=== PATIENT | male | born 1965 | race Caucasian/White ===

== ENCOUNTER → 2016-05-27 | Outpatient (CLI) | payer OTHER ==
[~2016-05-27] MED LIST: 'XANAX1 MG PO; ALBUTEROL0.09 MG/A2 IH; ANTIVERT25 MG PO; ASPIR-LOW81 MG PO; CELEXA10 MG PO; CIPROFLOXACIN500 MG PO; CLARITIN10 MG PO; DAYPRO600 M1 PO; EFFEXOR XR37.5 M1 PO; EFFEXOR XR75 M1 PO; FLOMAX0.4 MG PO; FLUOXETINE40 MG PO; FLUTICASON0.05 MG/AC NAS; HYCODAN,HYDROME10 ML PO; HYDR12.5C PO; HYDRODIURIL25 MG PO; HYTRIN1 M1 PO; LEVAQUIN750 MG PO; LISINOPRIL10 MG PO; LOTRIMIN1% TP; LUNESTA3 MG PO; LYRICA200 M1 PO; LYRICA50 M1 PO; MEDROL DOSEPAK4 MG PO; METHOCARBAMOL750 M1 PO; MONTELUKAST SOD10 MG PO; MOTRIN800 MG PO; NASONEX0.05 MG/AC NAS; NORCO 10-325 T1 EACH PO; PERCOCET 325 MG1 TA2 PO; PERCOCET 325 MG1 TA7 PO; POTASSIUM CITR10 MEQ PO; PREDNISONE20 M1 PO; PREDNISONE50 MG PO; PRILOSEC OTC20 MG PO; PRINIVIL10 MG PO; PROVENTIL0.09 MG/A1 INH; PROZAC20 MG PO; PROZAC40 M1 PO; PYRIDIUM200 M1 PO; RESTORIL15 MG PO; SEROQUEL25 MG PO; TEMAZEPAM30 MG PO; TRICOR145 MG PO; VIBRAMYCIN100 MG PO; VICODIN 500 MG-1 TAB PO; VICODIN ES 7501 TAB PO; VIIBRYD40; VIIBRYD40 PO; VITAMIN B11000 MCG/M IM; XANAX0.25 MG PO; XANAX0.5 MG PO; ZANTAC150 MG PO; ZITHROMAX Z PA250 MG PO; ZOFRAN ODT4 MG SL; ZOFRAN4 MG PO
[2016-06-01 12:07] LABS: BUSHITE 1.62 ratio (0.00-3.00); CALCIUM OXALATE 2.32 ratio (0.00-6.00); CALCIUM, URINE 187.2 mg/24 hr (100.0-300.0); CALCIUM, URINE 6.4 mg/dL (Not Estab.); CITRIC ACID (CITRATE) 924 mg/24 hr (320-1240); CREATININE, URINE 54.2 mg/dL (Not Estab.); MAGNESIUM, URINE 2.2 mg/dL (Not Estab.); MONOSODIUM URATE 4.83 ratio (0.00-4.00); OSMOLALITY, URINE 429 (300-900); SODIUM, URINE 112 mmol/L (Not Estab.); SODIUM, URINE 328 (40-220); STRUVITE 0.05 ratio (0.00-1.00); URIC ACID 0.22 ratio (0.00-1.20); URINE VOLUME 2925 mL/24 hr (800-1800); URINE VOLUME (PRESERVATIVE) 2925 mL/24 hr (800-1800); pH 24 HR URINE 6.9 (.)
== END | disposition home or self-care (01) ==
LOC: LAB 10:07
PROVIDERS: Urology
DX: N20.0 Calculus of kidney (principal)

== ENCOUNTER → 2016-07-24 | Outpatient (CLI) | payer OTHER | LOC: CARD 06:46 | DX: I63.9 Cerebral infarction, unspecified (principal); I34.0 Nonrheumatic mitral (valve) insufficiency; I07.1 Rheumatic tricuspid insufficiency ==

== ENCOUNTER → 2016-07-31 | Outpatient (CLI) | payer OTHER | LOC: US 11:30 | DX: M79.605 Pain in left leg (principal); M79.89 Other specified soft tissue disorders ==

== ENCOUNTER 2016-08-12 11:06 | Emergency (ER) | payer OTHER ==
[~2016-08-12] VITALS: Ht 180.3 cm; Wt 161.0 kg
[2016-08-12 11:42] LABS: BASO % 0.3 % (0.0-1.0); EOS # 0.3 10*3/uL (0.0-0.4); EOS % 3.4 % (1.0-4.0); HEMATOCRIT 43.1 % (42.0-52.0); LYMPH # 1.8 10*3/uL (1.3-4.4); LYMPH % 25.1 % (27.0-41.0); MEAN CELL VOLUME 88.9 fl (80.0-94.0); MEAN CORPUSCULAR HGB 28.9 pg (27.0-31.0); MEAN CORPUSCULAR HGB CONC 32.5 g/dl (33.0-37.0); MEAN PLATELET VOLUME 11.7 fl (9.6-12.3); MONO # 0.7 10*3/uL (0.1-1.0); MONO % 9.2 % (3.0-9.0); NEUT # 4.5 10*3/uL (2.3-7.9); NEUT % 61.4 % (47.0-73.0); PLATELET COUNT AUTOMATED 294 10*3/uL (130-400); RED BLOOD COUNT 4.85 10*6/uL (4.50-5.90); RED CELL DISTRI WIDTH 15.3 % (0-14.5); WHITE BLOOD COUNT 7.3 10*3/uL (4.8-10.8)
[2016-08-12 11:59] LABS: ALBUMIN 3.7 gm/dl (3.1-4.5); ALKALINE PHOSPHATASE 75 U/L (45-117); BILIRUBIN, TOTAL 0.4 mg/dl (0.2-1.0); BUN 21 mg/dl (7-24); CARBON DIOXIDE 32 mmol/L (21-32); CHLORIDE 103 mmol/L (98-107); EST GLOM FILT AFRICAN AMERICAN > 60 ml/min; GLUCOSE 94 mg/dL (65-99); SGOT/AST 17 IU/L (3-35); SGPT/ALT 32 U/L (12-78); SODIUM 143 mmol/L (136-145); TOTAL PROTEIN 7.7 gm/dL (6.4-8.2)
[2016-08-12 12:06] LABS: TROPONIN I < 0.015 ng/ml (<0.045)
[2016-08-12 12:11] LABS: BILIRUBIN NEGATIVE (NEGATIVE); BLOOD NEGATIVE (NEGATIVE); CLARITY CLEAR (CLEAR); COLOR YELLOW (YELLOW); GLUCOSE NEGATIVE (NEGATIVE); KETONE NEGATIVE (NEGATIVE); LEUKO ESTERASE NEGATIVE (NEGATIVE); NITRITE NEGATIVE (NEGATIVE); PROTEIN NEGATIVE (NEGATIVE); UROBILINOGEN 0.2 E.U./dl (0.2-1.0)
[2016-08-12 12:19] LABS: MUCOUS 1+; URINE REFLEX COMMENT NO (NO)
[2016-08-12 12:20] LABS: URINE AMPHETAMINES < 1000 (1000ng/ml); URINE BARBITURATES < 200 (200ng/ml); URINE COCAINE < 300 (300ng/ml)
[2016-08-12] MEDS ORDERED: ZOFRAN4 MG PO (12:50)
[2016-08-12] MEDS ORDERED: GOOD NEIGHBOR M25 M1 PO (12:50)
== END 2016-08-12 13:22 | disposition home or self-care (01) ==
LOC: ED 11:06
PROVIDERS: Nurse Practitioner Family
DX: R51 Headache (principal); Z86.73 Personal history of transient ischemic attack (TIA), and cerebral infarction without residual deficits; Z87.442 Personal history of urinary calculi; Z88.0 Allergy status to penicillin; Z88.1 Allergy status to other antibiotic agents; Z79.899 Other long term (current) drug therapy

== ENCOUNTER → 2016-09-19 | Outpatient (CLI) | payer OTHER ==
[~2016-09-19] MED LIST changes: +GOOD NEIGHBOR M25 M1 PO
[2016-09-19 10:51] LABS: ALBUMIN 3.6 gm/dl (3.1-4.5); ALKALINE PHOSPHATASE 75 U/L (45-117); BILIRUBIN, TOTAL 0.3 mg/dl (0.2-1.0); BUN 21 mg/dl (7-24); CARBON DIOXIDE 30 mmol/L (21-32); CHLORIDE 105 mmol/L (98-107); EST GLOM FILT AFRICAN AMERICAN > 60 ml/min; GLUCOSE 103 mg/dL (65-99); POTASSIUM 4.1 mmol/L (3.5-5.1); SGOT/AST 19 IU/L (3-35); SGPT/ALT 31 U/L (12-78); SODIUM 140 mmol/L (136-145); TOTAL PROTEIN 7.6 gm/dL (6.4-8.2)
== END | disposition home or self-care (01) ==
LOC: LAB 09:53
DX: G40.919 Epilepsy, unspecified, intractable, without status epilepticus (principal)

== ENCOUNTER 2016-09-27 11:28 | Emergency (ER) | payer OTHER ==
[2016-09-27] MEDS ORDERED: LEVOFLOXACIN750 M2 PO (11:48)
[2016-09-27] MEDS ORDERED: TRAZODONE150 MG PO (11:49)
[2016-09-27] MEDS ORDERED: NOVAPLUS V0.09 MG/Ac INH (11:50)
[2016-09-27 12:35] LABS: BASO % 0.5 % (0.0-1.0); EOS # 0.3 10*3/uL (0.0-0.4); EOS % 4.3 % (1.0-4.0); HEMATOCRIT 41.6 % (42.0-52.0); HEMOGLOBIN 13.6 g/dl (14.0-18.0); IG # 0.1 10*3/uL (0.0-0.1); LYMPH # 1.7 10*3/uL (1.3-4.4); MEAN CELL VOLUME 88.3 fl (80.0-94.0); MEAN CORPUSCULAR HGB 28.9 pg (27.0-31.0); MEAN CORPUSCULAR HGB CONC 32.7 g/dl (33.0-37.0); MEAN PLATELET VOLUME 11.6 fl (9.6-12.3); MONO # 0.8 10*3/uL (0.1-1.0); MONO % 11.5 % (3.0-9.0); NEUT # 3.7 10*3/uL (2.3-7.9); NEUT % 56.9 % (47.0-73.0); PLATELET COUNT AUTOMATED 269 10*3/uL (130-400); RED BLOOD COUNT 4.71 10*6/uL (4.50-5.90); RED CELL DISTRI WIDTH 15.1 % (0-14.5); WHITE BLOOD COUNT 6.5 10*3/uL (4.8-10.8)
[2016-09-27 12:47] LABS: PROTHROMBIN TIME 11.1 SECONDS (9.0-12.4)
[2016-09-27 12:52] LABS: ALBUMIN 3.6 gm/dl (3.1-4.5); ALKALINE PHOSPHATASE 67 U/L (45-117); BILIRUBIN, TOTAL 0.3 mg/dl (0.2-1.0); BUN 17 mg/dl (7-24); C-REACTIVE PROTEIN 1.56 MG/DL (0-0.3); CARBON DIOXIDE 28 mmol/L (21-32); CHLORIDE 105 mmol/L (98-107); CKMB 0.8 ng/ml (0.5-3.6); CPK 128 U/L (39-308); EST GLOM FILT AFRICAN AMERICAN > 60 ml/min; GLUCOSE 99 mg/dL (65-99); MAGNESIUM 2.2 mg/dL (1.5-2.1); POTASSIUM 3.9 mmol/L (3.5-5.1); SGOT/AST 16 IU/L (3-35); SGPT/ALT 29 U/L (12-78); SODIUM 142 mmol/L (136-145); TOTAL PROTEIN 7.4 gm/dL (6.4-8.2)
[2016-09-27 12:55] LABS: TROPONIN I < 0.015 ng/ml (<0.045)
== END 2016-09-27 14:39 | disposition home or self-care (01) ==
LOC: ED 11:28
PROVIDERS: Emergency Medicine
DX: R04.2 Hemoptysis (principal); R51 Headache; R06.02 Shortness of breath; Z87.442 Personal history of urinary calculi; Z79.899 Other long term (current) drug therapy; Z88.0 Allergy status to penicillin; Z88.1 Allergy status to other antibiotic agents

== ENCOUNTER 2017-02-09 16:12 | Emergency (ER) | payer OTHER ==
[~2017-02-09] VITALS: Ht 180.3 cm; Wt 157.4 kg
[~2017-02-09 16:12] MED LIST changes: +LEVOFLOXACIN750 M2 PO; +NOVAPLUS V0.09 MG/Ac INH; +TRAZODONE150 MG PO
[2017-02-09 16:47] LABS: BASO % 0.3 % (0.0-1.0); EOS # 0.6 10*3/uL (0.0-0.4); HEMATOCRIT 40.9 % (42.0-52.0); HEMOGLOBIN 13.3 g/dl (14.0-18.0); LYMPH % 28.4 % (27.0-41.0); MEAN CELL VOLUME 89.9 fl (80.0-94.0); MEAN CORPUSCULAR HGB 29.2 pg (27.0-31.0); MEAN CORPUSCULAR HGB CONC 32.5 g/dl (33.0-37.0); MONO # 0.7 10*3/uL (0.1-1.0); MONO % 10.1 % (3.0-9.0); NEUT # 3.6 10*3/uL (2.3-7.9); NEUT % 52.8 % (47.0-73.0); PLATELET COUNT AUTOMATED 236 10*3/uL (130-400); RED BLOOD COUNT 4.55 10*6/uL (4.50-5.90); WHITE BLOOD COUNT 6.9 10*3/uL (4.8-10.8)
[2017-02-09 17:16] LABS: ALBUMIN 3.6 gm/dl (3.1-4.5); ALKALINE PHOSPHATASE 62 U/L (45-117); BUN 14 mg/dl (7-24); CHLORIDE 99 mmol/L (98-107); CREATININE 1.45 mg/dL (0.70-1.30); POTASSIUM 3.6 mmol/L (3.5-5.1); SGOT/AST 24 IU/L (3-35); SGPT/ALT 40 U/L (12-78); SODIUM 137 mmol/L (136-145); TOTAL PROTEIN 7.4 gm/dL (6.4-8.2)
[2017-02-09 18:37] LABS: BILIRUBIN NEGATIVE (NEGATIVE); BLOOD TRACE-INTACT (NEGATIVE); CLARITY CLEAR (CLEAR); COLOR YELLOW (YELLOW); GLUCOSE NEGATIVE (NEGATIVE); KETONE NEGATIVE (NEGATIVE); LEUKO ESTERASE NEGATIVE (NEGATIVE); NITRITE NEGATIVE (NEGATIVE); PH 5.5 (5.0-9.0); SPECIFIC GRAVITY 1.015 (1.005-1.030); UROBILINOGEN 0.2 E.U./dl (0.2-1.0)
[2017-02-09 18:49] LABS: WBC 0-2 wbc/hpf (0-5)
== END 2017-02-09 19:05 | disposition home or self-care (01) ==
LOC: ED 16:12
PROVIDERS: Nurse Practitioner Family
DX: R33.9 Retention of urine, unspecified (principal); N20.0 Calculus of kidney; R03.0 Elevated blood-pressure reading, without diagnosis of hypertension; Z98.890 Other specified postprocedural states; Z86.73 Personal history of transient ischemic attack (TIA), and cerebral infarction without residual deficits; Z79.899 Other long term (current) drug therapy; Z88.0 Allergy status to penicillin; Z88.1 Allergy status to other antibiotic agents

== ENCOUNTER → 2017-02-14 | Outpatient (CLI) | payer OTHER ==
[2017-02-14 09:07] LABS: BILIRUBIN NEGATIVE (NEGATIVE); BLOOD NEGATIVE (NEGATIVE); CLARITY CLEAR (CLEAR); COLOR YELLOW (YELLOW); GLUCOSE NEGATIVE (NEGATIVE); KETONE NEGATIVE (NEGATIVE); LEUKO ESTERASE NEGATIVE (NEGATIVE); NITRITE NEGATIVE (NEGATIVE); UROBILINOGEN 0.2 E.U./dl (0.2-1.0)
[2017-02-14 09:17] LABS: BASO % 0.6 % (0.0-1.0); EOS # 0.6 10*3/uL (0.0-0.4); EOS % 9.5 % (1.0-4.0); HEMATOCRIT 41.4 % (42.0-52.0); HEMOGLOBIN 13.4 g/dl (14.0-18.0); LYMPH # 1.9 10*3/uL (1.3-4.4); LYMPH % 29.7 % (27.0-41.0); MEAN CELL VOLUME 90.2 fl (80.0-94.0); MEAN CORPUSCULAR HGB 29.2 pg (27.0-31.0); MEAN CORPUSCULAR HGB CONC 32.4 g/dl (33.0-37.0); MEAN PLATELET VOLUME 12.2 fl (9.6-12.3); MONO # 0.7 10*3/uL (0.1-1.0); MONO % 11.7 % (3.0-9.0); NEUT # 2.9 10*3/uL (2.3-7.9); NEUT % 47.1 % (47.0-73.0); PLATELET COUNT AUTOMATED 250 10*3/uL (130-400); RED BLOOD COUNT 4.59 10*6/uL (4.50-5.90); RED CELL DISTRI WIDTH 15.5 % (0-14.5); WHITE BLOOD COUNT 6.2 10*3/uL (4.8-10.8)
[2017-02-14 09:19] LABS: RBC 0-2 rbc/hpf (0-2); WBC 0-2 wbc/hpf (0-5)
[2017-02-14 09:36] LABS: ALBUMIN 3.2 gm/dl (3.1-4.5); CREATININE 1.72 mg/dL (0.70-1.30); PHOSPHOROUS 1.7 mg/dL (2.5-4.9); POTASSIUM 4.3 mmol/L (3.5-5.1); URIC ACID 6.2 mg/dL (3.5-7.2)
== END | disposition home or self-care (01) ==
LOC: LAB 08:31
PROVIDERS: Internal Medicine Nephrology
DX: I12.9 Hypertensive chronic kidney disease with stage 1 through stage 4 chronic kidney disease, or unspecified chronic kidney disease (principal); N20.0 Calculus of kidney; N18.3 Chronic kidney disease, stage 3 (moderate)

== ENCOUNTER → 2017-04-05 | Outpatient (CLI) | payer OTHER ==
[2017-04-05 08:41] LABS: BILIRUBIN NEGATIVE (NEGATIVE); BLOOD NEGATIVE (NEGATIVE); CLARITY CLEAR (CLEAR); COLOR YELLOW (YELLOW); GLUCOSE NEGATIVE (NEGATIVE); KETONE NEGATIVE (NEGATIVE); LEUKO ESTERASE NEGATIVE (NEGATIVE); NITRITE NEGATIVE (NEGATIVE); PH 6.5 (5.0-9.0)
[2017-04-05 08:50] LABS: BASO % 0.4 % (0.0-1.0); EOS # 0.2 10*3/uL (0.0-0.4); EOS % 3.7 % (1.0-4.0); HEMATOCRIT 42.1 % (42.0-52.0); HEMOGLOBIN 13.6 g/dl (14.0-18.0); LYMPH # 2.1 10*3/uL (1.3-4.4); LYMPH % 38.2 % (27.0-41.0); MEAN CORPUSCULAR HGB 29.1 pg (27.0-31.0); MEAN CORPUSCULAR HGB CONC 32.3 g/dl (33.0-37.0); MEAN PLATELET VOLUME 11.9 fl (9.6-12.3); MONO # 0.5 10*3/uL (0.1-1.0); MONO % 9.7 % (3.0-9.0); NEUT # 2.6 10*3/uL (2.3-7.9); NEUT % 47.6 % (47.0-73.0); PLATELET COUNT AUTOMATED 250 10*3/uL (130-400); RED BLOOD COUNT 4.68 10*6/uL (4.50-5.90); RETICULOCYTE % 1.68 % (0.50-2.50); WHITE BLOOD COUNT 5.4 10*3/uL (4.8-10.8)
[2017-04-05 08:58] LABS: ALBUMIN 3.4 gm/dl (3.1-4.5); ALKALINE PHOSPHATASE 57 U/L (45-117); BUN 11 mg/dl (7-24); CHLORIDE 105 mmol/L (98-107); CREATININE 1.47 mg/dL (0.70-1.30); IRON 100 ug/dL (65-175); PHOSPHOROUS 2.3 mg/dL (2.5-4.9); POTASSIUM 3.9 mmol/L (3.5-5.1); SGOT/AST 26 IU/L (3-35); SGPT/ALT 49 U/L (12-78); SODIUM 142 mmol/L (136-145); TOTAL IRON BINDING CAPACITY 340 ug/dl (250-450); TOTAL PROTEIN 7.3 gm/dL (6.4-8.2); URIC ACID 6.7 mg/dL (3.5-7.2)
[2017-04-05 09:21] LABS: BACTERIA TRACE; MUCOUS 1+
[2017-04-05 09:45] LABS: VITAMIN D, 25-HYDROXY 54.9 ng/mL (30-100)
[2017-04-05 09:46] LABS: FERRITIN 68.2 ng/mL (22.0-322.0); PTH INTACT 31.8 pg/mL (14.0-72.0)
[2017-04-06 06:12] LABS: TOTAL PROTEIN, SERUM 6.7 g/dL (6.0-8.5)
[2017-04-06 16:12] LABS: ALBUMIN 3.3 g/dL (2.9-4.4); ALPHA-1-GLOBULIN 0.2 g/dL (0.0-0.4); ALPHA-2-GLOBULIN 0.9 g/dL (0.4-1.0); BETA GLOBULIN 1.2 g/dL (0.7-1.3); GAMMA GLOBULIN 1.1 g/dL (0.4-1.8); GLOBULIN, TOTAL 3.4 g/dL (2.2-3.9); M-SPIKE Not Observed g/dL (Not Observed)
[2017-04-06 16:12] LABS: ALBUMIN, URINE 35.1 % (.); ALPHA-1-GLOBULIN, URINE 4.4 % (.); ALPHA-2-GLOBULIN, URINE 19.7 % (.); BETA GLOBULIN, URINE 28.7 % (.); GAMMA GLOBULIN, URINE 12.1 % (.); M-SPIKE, % Not Observed % (Not Observed); PROTEIN,TOTAL - URINE RANDOM 10.8 mg/dL (Not Estab.)
== END | disposition home or self-care (01) ==
LOC: LAB 08:06 → EDSTATUS 04-06 11:04
PROVIDERS: Internal Medicine Nephrology
DX: I12.9 Hypertensive chronic kidney disease with stage 1 through stage 4 chronic kidney disease, or unspecified chronic kidney disease (principal); N18.3 Chronic kidney disease, stage 3 (moderate); N20.0 Calculus of kidney; D64.9 Anemia, unspecified; E55.9 Vitamin D deficiency, unspecified

== ENCOUNTER → 2017-06-01 | Outpatient (CLI) | payer OTHER ==
[2017-06-01 15:25] LABS: ALBUMIN 3.9 gm/dl (3.1-4.5); ALKALINE PHOSPHATASE 69 U/L (45-117); BILIRUBIN, DIRECT < 0.1 mg/dL (0.0-0.2); BUN 14 mg/dl (7-24); CHLORIDE 102 mmol/L (98-107); CREATININE 1.44 mg/dL (0.70-1.30); FREE T4 0.97 ng/dl (0.76-1.46); PHOSPHOROUS 2.3 mg/dL (2.5-4.9); POTASSIUM 3.6 mmol/L (3.5-5.1); SGOT/AST 22 IU/L (3-35); SGPT/ALT 38 U/L (12-78); SODIUM 140 mmol/L (136-145); TOTAL PROTEIN 7.6 gm/dL (6.4-8.2); URIC ACID 6.4 mg/dL (3.5-7.2)
[2017-06-01 15:33] LABS: VITAMIN D, 25-HYDROXY 27.5 ng/mL (30-100)
[2017-06-01 15:34] LABS: PTH INTACT 35.3 pg/mL (14.0-72.0)
== END ==
LOC: LAB 14:15
PROVIDERS: Internal Medicine Nephrology
DX: I12.9 Hypertensive chronic kidney disease with stage 1 through stage 4 chronic kidney disease, or unspecified chronic kidney disease (principal); N18.3 Chronic kidney disease, stage 3 (moderate); D64.9 Anemia, unspecified; N20.0 Calculus of kidney; E04.9 Nontoxic goiter, unspecified; I63.231 Cerebral infarction due to unspecified occlusion or stenosis of right carotid arteries; E55.9 Vitamin D deficiency, unspecified

== ENCOUNTER → 2017-06-04 | Outpatient (CLI) | payer OTHER | END | disposition home or self-care (01) | LOC: LAB 12:55 | PROVIDERS: Internal Medicine | DX: N18.9 Chronic kidney disease, unspecified (principal); N20.0 Calculus of kidney; E04.9 Nontoxic goiter, unspecified; E83.52 Hypercalcemia ==

== ENCOUNTER → 2017-06-06 | Outpatient (CLI) | payer OTHER | END | disposition home or self-care (01) | LOC: LAB 10:21 | DX: N20.0 Calculus of kidney (principal); N18.9 Chronic kidney disease, unspecified; E04.9 Nontoxic goiter, unspecified ==

== ENCOUNTER → 2017-06-11 | Outpatient (CLI) | payer OTHER | END | disposition home or self-care (01) | LOC: US 06-08 15:00 → LAB 11:55 → US 12:30 | DX: Z12.5 Encounter for screening for malignant neoplasm of prostate (principal); R10.84 Generalized abdominal pain; N20.0 Calculus of kidney ==

== ENCOUNTER 2017-06-30 10:49 | Emergency (ER) | payer OTHER | END 2017-06-30 11:15 | disposition home or self-care (01) | LOC: ED 10:49 | DX: M79.605 Pain in left leg (principal); R03.0 Elevated blood-pressure reading, without diagnosis of hypertension; Z88.0 Allergy status to penicillin; Z88.1 Allergy status to other antibiotic agents; Z79.899 Other long term (current) drug therapy; Z87.442 Personal history of urinary calculi ==

== ENCOUNTER → 2017-07-24 | Outpatient (CLI) | payer OTHER | END | disposition home or self-care (01) | LOC: RAD 13:22 | DX: J06.9 Acute upper respiratory infection, unspecified (principal); J42 Unspecified chronic bronchitis; I10 Essential (primary) hypertension ==

== ENCOUNTER → 2017-08-16 | Outpatient (CLI) | payer OTHER | END | disposition home or self-care (01) | LOC: MRI 07-27 09:00 | DX: M25.872 Other specified joint disorders, left ankle and foot (principal) ==

== ENCOUNTER 2017-08-26 16:59 | Emergency (ER) | payer OTHER ==
[~2017-08-26] VITALS: Ht 180.3 cm; Wt 158.8 kg
[2017-08-26 17:11] LABS: BILIRUBIN NEGATIVE (NEGATIVE); BLOOD NEGATIVE (NEGATIVE); CLARITY SL CLOUDY (CLEAR); COLOR YELLOW (YELLOW); GLUCOSE NEGATIVE (NEGATIVE); KETONE NEGATIVE (NEGATIVE); LEUKO ESTERASE NEGATIVE (NEGATIVE); NITRITE NEGATIVE (NEGATIVE); PH 6.5 (5.0-9.0); SPECIFIC GRAVITY 1.015 (1.005-1.030); UROBILINOGEN 0.2 E.U./dl (0.2-1.0)
[2017-08-26 17:22] LABS: BASO % 0.4 % (0.0-1.0); EOS # 0.1 10*3/uL (0.0-0.4); EOS % 1.1 % (1.0-4.0); HEMATOCRIT 40.8 % (42.0-52.0); HEMOGLOBIN 13.4 g/dl (14.0-18.0); LYMPH # 2.2 10*3/uL (1.3-4.4); LYMPH % 21.2 % (27.0-41.0); MEAN CELL VOLUME 89.3 fl (80.0-94.0); MEAN CORPUSCULAR HGB 29.3 pg (27.0-31.0); MEAN CORPUSCULAR HGB CONC 32.8 g/dl (33.0-37.0); MEAN PLATELET VOLUME 10.7 fl (9.6-12.3); MONO % 9.7 % (3.0-9.0); NEUT % 66.9 % (47.0-73.0); PLATELET COUNT AUTOMATED 309 10*3/uL (130-400); RED BLOOD COUNT 4.57 10*6/uL (4.50-5.90); WHITE BLOOD COUNT 10.5 10*3/uL (4.8-10.8)
[2017-08-26 17:26] LABS: BACTERIA TRACE; HYALINE CAST 0-2; MUCOUS TRACE
[2017-08-26 17:37] LABS: ALBUMIN 3.4 gm/dl (3.1-4.5); CREATININE 1.63 mg/dL (0.70-1.30); POTASSIUM 3.7 mmol/L (3.5-5.1); TOTAL PROTEIN 6.9 gm/dL (6.4-8.2)
[2017-08-26] MEDS ORDERED: Percocet 325 MG1 TAB PO (18:55)
[2017-08-26] MEDS ORDERED: ZOFRAN ODT4 MG SL (18:55)
== END 2017-08-26 18:58 | disposition home or self-care (01) ==
LOC: ED 16:59
PROVIDERS: Physician Assistant
DX: N20.0 Calculus of kidney (principal); Z88.0 Allergy status to penicillin; Z88.1 Allergy status to other antibiotic agents; Z79.899 Other long term (current) drug therapy

== ENCOUNTER → 2017-09-03 | Outpatient (CLI) | payer OTHER ==
[~2017-09-03] MED LIST changes: +Percocet 325 MG1 TAB PO
== END | disposition home or self-care (01) ==
LOC: US 16:38
DX: I73.9 Peripheral vascular disease, unspecified (principal); I10 Essential (primary) hypertension; I25.10 Atherosclerotic heart disease of native coronary artery without angina pectoris; Z86.73 Personal history of transient ischemic attack (TIA), and cerebral infarction without residual deficits

== ENCOUNTER → 2017-10-24 | Outpatient (CLI) | payer OTHER ==
[~2017-10-24] MED LIST changes: +ABILIFY15 MG PO; +ATIVAN1 MG PO; +COZAAR50 M1 PO; +DEPAKOTE500 MG PO; +DITROPAN XL10 MG PO; +LIPITOR40 MG PO; +METHYLFOLATE PO; +NORCO 5-325 TA1 EACH PO; +OMEPRAZOLE40 MG PO; -PRILOSEC OTC20 MG PO; +SYMB160 INH; +TOPAMAX25 M3 PO; +TRICOR145 M1 PO; +VISTARIL50 MG PO; +ZYLOPRIM100 MG PO; +ZYRTEC10 MG PO
== END | disposition home or self-care (01) ==
LOC: CARD 12:27
DX: Z01.818 Encounter for other preprocedural examination (principal); I10 Essential (primary) hypertension; J44.9 Chronic obstructive pulmonary disease, unspecified

== ENCOUNTER → 2017-11-05 | Day surgery (SDC) | payer OTHER ==
[~2017-11-05] VITALS: Ht 180.3 cm; Wt 155.6 kg
[~2017-11-05] MED LIST changes: +NAPROSYN500 MG PO
--- NOTE | ~2017-11-05 | O ---
[place], [place] OPERATIVE NOTE [id number] UN[facility] #: [id number] ROOM: DOCTOR: RENE DEUTSCH DPM BIRTHDATE: [birth year] DOS: 11/05/2017 SURGEON: Rene Deutsch DPM PREOPERATIVE DIAGNOSIS: Chronic plantar fasciitis, left foot. POSTOPERATIVE DIAGNOSIS: Chronic plantar fasciitis, left foot. PROCEDURE: Instep plantar fasciotomy, left foot. ANESTHESIA: LMAC, popliteal block as well as a local infiltration, the tarsal tunnel area of 7 mL of 0.5% Marcaine plain. ESTIMATED BLOOD LOSS: 1 mL. COMPLICATIONS: None. DESCRIPTION OF PROCEDURE: After appropriate preoperative evaluation, the patient was given a popliteal block in the preoperative area, the patient was then transported to the operating room and placed on the table in supine position. Anesthesia was then administered per anesthesia record. A well-padded left ankle tourniquet was applied. The area was prepped and draped in usual sterile manner. Left foot was elevated for 2 minutes and tourniquet was inflated to 250 mmHg and left foot was lowered to the surgical field. Attention was directed to the left plantar medial arch just distal to the heel pad where a 2 cm transverse incision was made. The patient was noted to be feeling some pain at this time, so I infiltrated 7 mL of 0.5% Marcaine plain proximal to the incision. Adequate anesthesia was then obtained. The incision was dissected down to the level of the plantar fascial ligament. At this time, any bleeders were bovied as necessary. The medial and central band of the plantar fascial ligament was identified. Next, using a #15 blade, the medial band and half of the central band was transected. After this transection, muscle belly was seen inferior to the transected plantar fascial ligament. With dorsiflexion of foot, there was noted to be good release of the medial half of the plantar fascial ligament. The area was flushed with saline. Skin was closed with 3-0 nylon in a horizontal mattress fashion. The tourniquet was released and good vascularity was established to the digits. Adaptic, 4 x 4, Kerlix and Siva wrap was applied for postoperative bandage. The patient tolerated procedure and anesthesia well and left the OR with vital signs stable and intact and transferred to recovery room. Given written instruction postoperative care. Okay to be partial weightbearing on the left foot in the Cam walker, gave Meeker 5 mg/325 mg to take as directed, dispensed 20, one pill every 4-6 hours p.r.n. pain with no refills. He will be followed in the office in 1 week's time. [place], [place] OPERATIVE NOTE NAME: RENE FINNEY UNIT #: [id number] ROOM: DOCTOR: RENE DEUTSCH DPM BIRTHDATE: [birth year] RENE DEUTSCH DPM CM:OPRECORD:OPERATIVE NOTE 1309 [id number] RENE DEUTSCH DPM 11/05/17 1628 interface
[2017-11-05 11:23] VITALS: BP 107/66
[2017-11-05 13:05] VITALS: BP 108/61
[2017-11-05 13:20] VITALS: BP 107/67
[2017-11-05 13:35] VITALS: BP 116/63
== END | disposition home or self-care (01) ==
LOC: SDC 10-24 08:00
DX: M72.2 Plantar fascial fibromatosis (principal); I10 Essential (primary) hypertension; J44.9 Chronic obstructive pulmonary disease, unspecified; K21.9 Gastro-esophageal reflux disease without esophagitis; F32.9 Major depressive disorder, single episode, unspecified; F41.9 Anxiety disorder, unspecified; M10.9 Gout, unspecified; E66.01 Morbid (severe) obesity due to excess calories; Z98.890 Other specified postprocedural states; Z87.442 Personal history of urinary calculi; Z79.899 Other long term (current) drug therapy; Z88.0 Allergy status to penicillin; Z88.8 Allergy status to other drugs, medicaments and biological substances; Z80.3 Family history of malignant neoplasm of breast; Z80.42 Family history of malignant neoplasm of prostate; Z80.0 Family history of malignant neoplasm of digestive organs; Z86.73 Personal history of transient ischemic attack (TIA), and cerebral infarction without residual deficits; Z68.42 Body mass index [BMI] 45.0-49.9, adult

== ENCOUNTER → 2018-01-15 | Day surgery (SDC) | payer OTHER ==
[~2018-01-15] VITALS: Ht 180.3 cm; Wt 149.7 kg
[~2018-01-15] MED LIST changes: +ANECREAM5 GM R; +ANUSOL-HC25 MG R; +CIPRO500 MG PO; +TRAMADOL HCL50 MG PO
[2018-01-15 09:49] VITALS: BP 119/80
[2018-01-15 11:20] VITALS: BP 124/71
[2018-01-15 11:29] VITALS: BP 107/68
[2018-01-15 11:45] VITALS: BP 114/68
== END | disposition home or self-care (01) ==
LOC: SDC 01-11 14:45
DX: L82.1 Other seborrheic keratosis (principal); I12.9 Hypertensive chronic kidney disease with stage 1 through stage 4 chronic kidney disease, or unspecified chronic kidney disease; N18.3 Chronic kidney disease, stage 3 (moderate); K21.9 Gastro-esophageal reflux disease without esophagitis; E78.00 Pure hypercholesterolemia, unspecified; G47.30 Sleep apnea, unspecified; J45.909 Unspecified asthma, uncomplicated; F41.8 Other specified anxiety disorders; H40.9 Unspecified glaucoma; E66.01 Morbid (severe) obesity due to excess calories; Z68.42 Body mass index [BMI] 45.0-49.9, adult; Z86.73 Personal history of transient ischemic attack (TIA), and cerebral infarction without residual deficits; Z99.89 Dependence on other enabling machines and devices; Z79.899 Other long term (current) drug therapy; Z98.890 Other specified postprocedural states; Z88.1 Allergy status to other antibiotic agents; Z88.0 Allergy status to penicillin; Z80.0 Family history of malignant neoplasm of digestive organs; Z80.42 Family history of malignant neoplasm of prostate; Z80.3 Family history of malignant neoplasm of breast

== ENCOUNTER 2018-01-28 14:20 | Emergency (ER) | payer OTHER ==
[~2018-01-28] VITALS: Ht 180.3 cm; Wt 151.5 kg
[~2018-01-28 14:20] MED LIST changes: -ANECREAM5 GM R; -ANUSOL-HC25 MG R; -CIPRO500 MG PO
[2018-01-28] MEDS ORDERED: ANECREAM5 GM R (14:48)
[2018-01-28] MEDS ORDERED: ANUSOL-HC25 MG R (14:48)
[2018-03-12] MEDS ORDERED: CIPRO500 MG PO (18:12)
== END 2018-01-28 14:53 | disposition home or self-care (01) ==
LOC: ED 14:20
DX: K64.8 Other hemorrhoids (principal); Z88.0 Allergy status to penicillin; Z88.1 Allergy status to other antibiotic agents; Z79.899 Other long term (current) drug therapy; Z86.73 Personal history of transient ischemic attack (TIA), and cerebral infarction without residual deficits

== ENCOUNTER → 2018-02-08 | Outpatient (CLI) | payer OTHER ==
[~2018-02-08] MED LIST changes: +ANECREAM5 GM R; +ANUSOL-HC25 MG R; +CIPRO500 MG PO
[2018-02-08 15:37] LABS: ALBUMIN 3.5 gm/dl (3.1-4.5); CREATININE 1.56 mg/dL (0.70-1.30); PHOSPHOROUS 1.7 mg/dL (2.5-4.9); POTASSIUM 3.6 mmol/L (3.5-5.1)
== END | disposition home or self-care (01) ==
LOC: LAB 14:51
PROVIDERS: Internal Medicine Nephrology
DX: I12.9 Hypertensive chronic kidney disease with stage 1 through stage 4 chronic kidney disease, or unspecified chronic kidney disease (principal); D63.1 Anemia in chronic kidney disease; N18.3 Chronic kidney disease, stage 3 (moderate); N20.0 Calculus of kidney; E55.9 Vitamin D deficiency, unspecified

== ENCOUNTER → 2018-05-28 | Outpatient (CLI) | payer OTHER ==
[~2018-05-28] MED LIST changes: +Meclizine25 MG PO; +TESSALON PERLE100 MG PO
== END | disposition home or self-care (01) ==
LOC: RAD 16:24 → LAB 16:24
DX: R05 Cough (principal); J01.90 Acute sinusitis, unspecified; R53.83 Other fatigue

== ENCOUNTER 2018-06-18 21:47 | Emergency (ER) | payer OTHER ==
--- NOTE | ~2018-06-18 | EKG ---
[place], [place] ELECTROCARDIOGRAM REPORT NAME: RENE FINNEY UNIT #: [id number] ROOM: DOCTOR: EPIPHLUIS DRAFT REPORT BIRTHDATE: [birth year] [facility] Test Date: 2018-06-18 Test Time: 22:02:33 Pat Name: RENE FINNEY Department: Room: Gender: Tool Grinder: Radha Boone : 1965 Requested By: SHADY CASTRO Order Number: [id number] Reading MD: Marbella Cramer MD Measurements Intervals [place] Rate: 76 P: 0 MO: 189 QRS: 32 QRSD: 114 T: 29 QT: 411 QTc: 463 Interpretive Statements Sinus rhythm Borderline intraventricular conduction delay Baseline wander in lead(s) I,III,aVL Electronically Signed On 06-19-2018 14:21:52 PST by Marbella Cramer MD CM:EKGRPT:ELECTROCARDIOGRAM REPORT 1421 SHADY REDMOND DRAFT REPORT SHADY CASTRO DO
[~2018-06-18 21:47] MED LIST changes: -Meclizine25 MG PO; -TESSALON PERLE100 MG PO
[2018-06-18 22:11] LABS: BASO % 0.5 % (0.0-1.0); EOS # 0.3 10*3/uL (0.0-0.4); HEMATOCRIT 40.3 % (42.0-52.0); HEMOGLOBIN 13.4 g/dl (14.0-18.0); LYMPH # 2.7 10*3/uL (1.3-4.4); LYMPH % 34.6 % (27.0-41.0); MEAN CELL VOLUME 88.4 fl (80.0-94.0); MEAN CORPUSCULAR HGB 29.4 pg (27.0-31.0); MEAN CORPUSCULAR HGB CONC 33.3 g/dl (33.0-37.0); MEAN PLATELET VOLUME 10.7 fl (9.6-12.3); MONO # 0.9 10*3/uL (0.1-1.0); MONO % 11.3 % (3.0-9.0); NEUT # 3.8 10*3/uL (2.3-7.9); NEUT % 49.3 % (47.0-73.0); PLATELET COUNT AUTOMATED 317 10*3/uL (130-400); RED BLOOD COUNT 4.56 10*6/uL (4.50-5.90); RED CELL DISTRI WIDTH 15.2 % (0-14.5); WHITE BLOOD COUNT 7.7 10*3/uL (4.8-10.8)
[2018-06-18 22:31] LABS: ALBUMIN 3.6 gm/dl (3.1-4.5); ALKALINE PHOSPHATASE 45 U/L (45-117); BUN 14 mg/dl (7-24); CHLORIDE 109 mmol/L (98-107); CREATININE 2.03 mg/dL (0.70-1.30); POTASSIUM 3.7 mmol/L (3.5-5.1); SGOT/AST 28 IU/L (3-35); SGPT/ALT 48 U/L (12-78); SODIUM 143 mmol/L (136-145); TOTAL PROTEIN 7.3 gm/dL (6.4-8.2)
[2018-06-18 22:39] LABS: TROPONIN I < 0.015 ng/ml (<0.045)
[2018-06-18] MEDS ORDERED: PREDNISONE50 MG PO (23:27)
[2018-06-18] MEDS ORDERED: TESSALON PERLE100 MG PO (23:27)
[2018-07-22] MEDS ORDERED: Meclizine25 MG PO (01:05)
== END 2018-06-18 23:57 | disposition home or self-care (01) ==
LOC: ED 21:47
PROVIDERS: Student in an Organized Health Care Education/Training Program
DX: R05 Cough (principal); R06.02 Shortness of breath; R09.89 Other specified symptoms and signs involving the circulatory and respiratory systems; R19.7 Diarrhea, unspecified; R14.2 Eructation; J45.909 Unspecified asthma, uncomplicated; Z88.0 Allergy status to penicillin; Z88.1 Allergy status to other antibiotic agents; Z88.6 Allergy status to analgesic agent; Z79.2 Long term (current) use of antibiotics; Z79.899 Other long term (current) drug therapy; Z87.442 Personal history of urinary calculi; Z86.73 Personal history of transient ischemic attack (TIA), and cerebral infarction without residual deficits

== ENCOUNTER → 2018-07-25 | Outpatient (CLI) | payer OTHER ==
[~2018-07-25] MED LIST changes: +Meclizine25 MG PO; +TESSALON PERLE100 MG PO
[2018-07-25 10:16] LABS: ALBUMIN 3.4 gm/dl (3.1-4.5); BILIRUBIN, DIRECT 0.1 mg/dL (0.0-0.2); CREATININE 1.8 mg/dL (0.70-1.30); FREE T4 0.89 ng/dl (0.76-1.46); POTASSIUM 3.7 mmol/L (3.5-5.1); TOTAL PROTEIN 6.9 gm/dL (6.4-8.2); URIC ACID 4.9 mg/dL (3.5-7.2)
[2018-07-25 10:20] LABS: THYROID STIM HORMONE (HS) 1.68 uIU/ml (0.358-4.75)
== END | disposition home or self-care (01) ==
LOC: LAB 09:26
PROVIDERS: Internal Medicine
DX: E04.9 Nontoxic goiter, unspecified (principal); E74.39 Other disorders of intestinal carbohydrate absorption; E78.49 Other hyperlipidemia; N20.0 Calculus of kidney; D64.9 Anemia, unspecified

== ENCOUNTER → 2018-10-08 | Outpatient (CLI) | payer OTHER ==
[~2018-10-08] MED LIST changes: +AZELASTINE137 MCG/0. NAS; +ECOTRIN81 M1 PO; +EFFEXOR XR150 M1 PO; +FLOVENT HFA12 GM INH; -FLUTICASON0.05 MG/AC NAS; -POTASSIUM CITR10 MEQ PO; +POTASSIUM CITR15 ME1 PO; +PROPRANOLOL HCL20 MG PO; +REXULTI4 MG PO; +TRULICITY1.5 MG/0.5 SC; +VITAMIN B121000 MC1 PO; +VITAMIN D32000 UNIT PO
[2018-10-08 09:27] LABS: ALBUMIN 3.2 gm/dl (3.1-4.5); CREATININE 1.91 mg/dL (0.70-1.30); POTASSIUM 3.4 mmol/L (3.5-5.1)
[2018-10-08 09:28] LABS: PHOSPHOROUS 2.5 mg/dL (2.5-4.9)
[2018-10-08 09:59] LABS: VITAMIN D, 25-HYDROXY 39.7 ng/mL (30-100)
== END | disposition home or self-care (01) ==
LOC: LAB 08:24
PROVIDERS: Internal Medicine Nephrology
DX: I12.9 Hypertensive chronic kidney disease with stage 1 through stage 4 chronic kidney disease, or unspecified chronic kidney disease (principal); N18.3 Chronic kidney disease, stage 3 (moderate); E55.9 Vitamin D deficiency, unspecified; N20.0 Calculus of kidney; D64.9 Anemia, unspecified

== ENCOUNTER → 2018-11-12 | Outpatient (CLI) | payer OTHER ==
[2018-11-12 14:08] LABS: ALBUMIN 3.3 gm/dl (3.1-4.5); ALKALINE PHOSPHATASE 55 U/L (45-117); BILIRUBIN, DIRECT 0.1 mg/dL (0.0-0.2); BUN 19 mg/dl (7-24); CHLORIDE 109 mmol/L (98-107); CREATININE 1.41 mg/dL (0.70-1.30); IRON 99 ug/dL (65-175); SGOT/AST 32 IU/L (3-35); SGPT/ALT 51 U/L (12-78); SODIUM 144 mmol/L (136-145); TOTAL IRON BINDING CAPACITY 300 ug/dl (250-450); URIC ACID 6.3 mg/dL (3.5-7.2)
[2018-11-12 14:16] LABS: VITAMIN D, 25-HYDROXY 30.2 ng/mL (30-100)
== END | disposition home or self-care (01) ==
LOC: LAB 13:17
PROVIDERS: Internal Medicine
DX: E78.49 Other hyperlipidemia (principal); E74.39 Other disorders of intestinal carbohydrate absorption; N20.0 Calculus of kidney; E55.9 Vitamin D deficiency, unspecified; D64.9 Anemia, unspecified

== ENCOUNTER → 2019-02-23 | Outpatient (CLI) | payer MEDICARE, MEDICAID | END | disposition home or self-care (01) | LOC: RAD 12:31 | DX: I11.9 Hypertensive heart disease without heart failure (principal); J45.909 Unspecified asthma, uncomplicated ==

== ENCOUNTER → 2019-03-17 | Outpatient (CLI) | payer MEDICARE ==
[2019-03-17 10:06] LABS: ALBUMIN 3.5 gm/dl (3.1-4.5); BILIRUBIN, DIRECT 0.1 mg/dL (0.0-0.2); CREATININE 2.23 mg/dL (0.70-1.30); POTASSIUM 3.8 mmol/L (3.5-5.1); TOTAL PROTEIN 7.2 gm/dL (6.4-8.2)
[2019-03-17 10:13] LABS: FREE T4 0.95 ng/dl (0.76-1.46); THYROID STIM HORMONE (HS) 1.43 uIU/ml (0.358-4.75)
[2019-03-17 10:33] LABS: VITAMIN D, 25-HYDROXY 38.2 ng/mL (30-100)
== END | disposition home or self-care (01) ==
LOC: LAB 08:41
PROVIDERS: Internal Medicine
DX: E74.39 Other disorders of intestinal carbohydrate absorption (principal); E78.5 Hyperlipidemia, unspecified; E53.8 Deficiency of other specified B group vitamins; E04.9 Nontoxic goiter, unspecified; E55.9 Vitamin D deficiency, unspecified; E87.6 Hypokalemia

== ENCOUNTER 2019-04-21 16:59 | Emergency (ER) | payer MEDICARE ==
[~2019-04-21] VITALS: Ht 180.3 cm; Wt 147.0 kg
[2019-04-21 17:37] LABS: BILIRUBIN NEGATIVE (NEGATIVE); BLOOD TRACE-INTACT (NEGATIVE); CLARITY SL CLOUDY (CLEAR); COLOR YELLOW (YELLOW); GLUCOSE NEGATIVE (NEGATIVE); KETONE NEGATIVE (NEGATIVE); LEUKO ESTERASE 1+ (NEGATIVE); NITRITE NEGATIVE (NEGATIVE); UROBILINOGEN 0.2 E.U./dl (0.2-1.0)
[2019-04-21 17:43] LABS: BACTERIA 4+; MUCOUS TRACE; RBC 0-2 rbc/hpf (0-2); WBC TNTC wbc/hpf (0-5)
[2019-04-21 17:48] LABS: BASO % 0.3 % (0.0-1.0); EOS # 0.2 10*3/uL (0.0-0.4); EOS % 3.5 % (1.0-4.0); HEMATOCRIT 36.4 % (42.0-52.0); HEMOGLOBIN 11.7 g/dl (14.0-18.0); LYMPH # 2.2 10*3/uL (1.3-4.4); LYMPH % 31.4 % (27.0-41.0); MEAN CELL VOLUME 83.1 fl (80.0-94.0); MEAN CORPUSCULAR HGB 26.7 pg (27.0-31.0); MEAN CORPUSCULAR HGB CONC 32.1 g/dl (33.0-37.0); MEAN PLATELET VOLUME 11.2 fl (9.6-12.3); MONO # 0.7 10*3/uL (0.1-1.0); MONO % 9.7 % (3.0-9.0); NEUT # 3.8 10*3/uL (2.3-7.9); NEUT % 54.8 % (47.0-73.0); PLATELET COUNT AUTOMATED 280 10*3/uL (130-400); RED BLOOD COUNT 4.38 10*6/uL (4.50-5.90); RED CELL DISTRI WIDTH 14.7 % (0-14.5); WHITE BLOOD COUNT 6.9 10*3/uL (4.8-10.8)
[2019-04-21 18:04] LABS: ALBUMIN 3.3 gm/dl (3.1-4.5); CREATININE 2.15 mg/dL (0.70-1.30); POTASSIUM 3.9 mmol/L (3.5-5.1); TOTAL PROTEIN 6.8 gm/dL (6.4-8.2)
[2019-04-21] MEDS ORDERED: VIBRAMYCIN100 MG PO (19:47)
== END 2019-04-21 19:57 | disposition home or self-care (01) ==
LOC: ED 16:59
PROVIDERS: Emergency Medicine; Nurse Practitioner Family
DX: N39.0 Urinary tract infection, site not specified (principal); K21.9 Gastro-esophageal reflux disease without esophagitis; I10 Essential (primary) hypertension; E78.00 Pure hypercholesterolemia, unspecified; Z87.442 Personal history of urinary calculi; Z88.0 Allergy status to penicillin; Z88.1 Allergy status to other antibiotic agents; Z88.6 Allergy status to analgesic agent; Z79.899 Other long term (current) drug therapy; Z79.82 Long term (current) use of aspirin

== ENCOUNTER 2019-05-29 14:48 | Emergency (ER) | payer MEDICARE ==
[~2019-05-29] VITALS: Ht 180.3 cm; Wt 145.1 kg
[2019-05-29 16:31] LABS: BASO % 0.5 % (0.0-1.0); EOS # 0.3 10*3/uL (0.0-0.4); EOS % 4.1 % (1.0-4.0); HEMATOCRIT 35.7 % (42.0-52.0); HEMOGLOBIN 11.4 g/dl (14.0-18.0); LYMPH # 2.5 10*3/uL (1.3-4.4); LYMPH % 33.7 % (27.0-41.0); MEAN CORPUSCULAR HGB 25.9 pg (27.0-31.0); MEAN CORPUSCULAR HGB CONC 31.9 g/dl (33.0-37.0); MEAN PLATELET VOLUME 10.6 fl (9.6-12.3); MONO # 0.9 10*3/uL (0.1-1.0); MONO % 11.6 % (3.0-9.0); NEUT # 3.6 10*3/uL (2.3-7.9); NEUT % 48.7 % (47.0-73.0); PLATELET COUNT AUTOMATED 344 10*3/uL (130-400); RED BLOOD COUNT 4.41 10*6/uL (4.50-5.90); RED CELL DISTRI WIDTH 14.6 % (0-14.5); WHITE BLOOD COUNT 7.3 10*3/uL (4.8-10.8)
[2019-05-29 16:46] LABS: ALBUMIN 3.1 gm/dl (3.1-4.5); CREATININE 1.83 mg/dL (0.70-1.30); POTASSIUM 3.9 mmol/L (3.5-5.1); TOTAL PROTEIN 6.5 gm/dL (6.4-8.2)
[2019-05-29 16:47] LABS: BILIRUBIN NEGATIVE (NEGATIVE); BLOOD NEGATIVE (NEGATIVE); CLARITY SL CLOUDY (CLEAR); COLOR YELLOW (YELLOW); GLUCOSE NEGATIVE (NEGATIVE); KETONE NEGATIVE (NEGATIVE); NITRITE NEGATIVE (NEGATIVE); SPECIFIC GRAVITY 1.005 (1.005-1.030); UROBILINOGEN 0.2 E.U./dl (0.2-1.0)
[2019-05-29 16:48] LABS: BACTERIA TRACE; LEUKO ESTERASE NEGATIVE (NEGATIVE); MUCOUS 1+
[2019-05-29] MEDS ORDERED: ZOFRAN4 MG PO (18:37)
[2019-07-07] MEDS ORDERED: CIPRO500 MG PO (01:25)
== END 2019-05-29 18:40 | disposition home or self-care (01) ==
LOC: ED 14:48
PROVIDERS: Physician Assistant
DX: R10.31 Right lower quadrant pain (principal); R11.2 Nausea with vomiting, unspecified; R50.9 Fever, unspecified; K21.9 Gastro-esophageal reflux disease without esophagitis; I10 Essential (primary) hypertension; E78.00 Pure hypercholesterolemia, unspecified; J45.909 Unspecified asthma, uncomplicated; Z88.0 Allergy status to penicillin; Z88.6 Allergy status to analgesic agent; Z88.1 Allergy status to other antibiotic agents; Z79.899 Other long term (current) drug therapy; Z79.2 Long term (current) use of antibiotics; Z79.82 Long term (current) use of aspirin; Z87.442 Personal history of urinary calculi

== ENCOUNTER → 2019-06-12 | Outpatient (CLI) | payer MEDICARE | END | disposition home or self-care (01) | LOC: LAB 11:14 | DX: D64.9 Anemia, unspecified (principal) ==

== ENCOUNTER → 2019-06-13 | Outpatient (CLI) | payer MEDICARE | END | disposition home or self-care (01) | LOC: US 07:10 | DX: N28.1 Cyst of kidney, acquired (principal); N20.0 Calculus of kidney; E78.5 Hyperlipidemia, unspecified; E53.8 Deficiency of other specified B group vitamins; E66.9 Obesity, unspecified; D64.9 Anemia, unspecified; R94.5 Abnormal results of liver function studies; I10 Essential (primary) hypertension ==

== ENCOUNTER 2019-07-10 13:51 | Inpatient (IN) | payer MEDICARE ==
[~2019-07-10] VITALS: Ht 180.3 cm; Wt 147.1 kg
[~2019-07-10 13:51] MED LIST changes: +PROPRANOLOL ER80 MG PO; -PROPRANOLOL HCL20 MG PO; -VITAMIN D32000 UNIT PO; +VITAMIN D33000 UNIT PO
[2019-07-10 13:55] VITALS: BP 123/69
[2019-07-10 14:29] LABS: BASO # 0.1 10*3/uL (0.0-0.1); BASO % 0.8 % (0.0-1.0); EOS # 0.3 10*3/uL (0.0-0.4); EOS % 4.4 % (1.0-4.0); HEMATOCRIT 35.4 % (42.0-52.0); MEAN CORPUSCULAR HGB 24.6 pg (27.0-31.0); MEAN CORPUSCULAR HGB CONC 31.1 g/dl (33.0-37.0); MONO # 0.7 10*3/uL (0.1-1.0); MONO % 11.2 % (3.0-9.0); NEUT # 3.3 10*3/uL (2.3-7.9); NEUT % 51.3 % (47.0-73.0); PLATELET COUNT AUTOMATED 321 10*3/uL (130-400); RED BLOOD COUNT 4.48 10*6/uL (4.50-5.90); RED CELL DISTRI WIDTH 15.1 % (0-14.5); WHITE BLOOD COUNT 6.4 10*3/uL (4.8-10.8)
[2019-07-10 14:42] LABS: BILIRUBIN NEGATIVE (NEGATIVE); BLOOD TRACE-INTACT (NEGATIVE); CLARITY SL CLOUDY (CLEAR); COLOR YELLOW (YELLOW); GLUCOSE NEGATIVE (NEGATIVE); KETONE NEGATIVE (NEGATIVE); LEUKO ESTERASE NEGATIVE (NEGATIVE); NITRITE NEGATIVE (NEGATIVE); SPECIFIC GRAVITY 1.015 (1.005-1.030); UROBILINOGEN 0.2 E.U./dl (0.2-1.0)
[2019-07-10 14:43] LABS: ALBUMIN 3.1 gm/dl (3.1-4.5); ALKALINE PHOSPHATASE 55 U/L (45-117); BUN 16 mg/dl (7-24); CHLORIDE 111 mmol/L (98-107); CREATININE 1.97 mg/dL (0.70-1.30); POTASSIUM 3.8 mmol/L (3.5-5.1); SGOT/AST 33 IU/L (3-35); SGPT/ALT 54 U/L (12-78); SODIUM 141 mmol/L (136-145); TOTAL PROTEIN 6.6 gm/dL (6.4-8.2)
[2019-07-10 14:48] LABS: BACTERIA 2+; COARSE GRANULAR CAST 0-2; MUCOUS TRACE; RBC 0-2 rbc/hpf (0-2)
[2019-07-10] MEDS ORDERED: BUSPIRONE HCL10 MG PO (17:43)
[2019-07-10] MEDS ORDERED: SYMB160 INH (17:43)
[2019-07-10] MEDS ORDERED: TOPAMAX50 MG PO (17:46)
[2019-07-10] MEDS ORDERED: REMERON15 M2 PO (17:47)
[2019-07-10 17:55] VITALS: BP 101/67
--- NOTE | 2019-07-10 18:30 | NUR ---
Post-void bladder scan done with results <[address] Hardy.
--- NOTE | 2019-07-10 19:50 | NUR ---
RIGHT FLANK PAIN RATED "6" PER PT., NORCO GIVEN PER ORDER FOR PAIN.
[2019-07-10 20:00] VITALS: BP 99/62
--- NOTE | 2019-07-10 20:50 | NUR ---
ANIYA EFFECTIVE FOR PAIN REDUCTION PER PT.
[2019-07-11] VITALS: BP 94/58
--- NOTE | 2019-07-11 01:27 | NUR ---
NORCO GIVEN PER ORDER FOR RIGHT FLANK PAIN RATED "6". SEE MAR.
--- NOTE | 2019-07-11 02:25 | NUR ---
NORCO EFFECTIVE FOR REDUCING PAIN PER PT.
--- NOTE | 2019-07-11 04:22 | NUR ---
SLEEPING NO ACUTE DISTRESS NOTED.
--- NOTE | 2019-07-11 04:37 | NUR ---
24 HR chart check completed.
[2019-07-11 06:14] LABS: BASO % 0.3 % (0.0-1.0); EOS # 0.4 10*3/uL (0.0-0.4); EOS % 4.9 % (1.0-4.0); HEMOGLOBIN 10.1 g/dl (14.0-18.0); LYMPH # 2.8 10*3/uL (1.3-4.4); LYMPH % 38.1 % (27.0-41.0); MEAN CELL VOLUME 79.1 fl (80.0-94.0); MEAN CORPUSCULAR HGB 24.2 pg (27.0-31.0); MEAN CORPUSCULAR HGB CONC 30.6 g/dl (33.0-37.0); MEAN PLATELET VOLUME 11.2 fl (9.6-12.3); MONO # 0.9 10*3/uL (0.1-1.0); NEUT # 3.3 10*3/uL (2.3-7.9); NEUT % 44.4 % (47.0-73.0); PLATELET COUNT AUTOMATED 285 10*3/uL (130-400); RED BLOOD COUNT 4.17 10*6/uL (4.50-5.90); RED CELL DISTRI WIDTH 15.1 % (0-14.5); WHITE BLOOD COUNT 7.3 10*3/uL (4.8-10.8)
[2019-07-11 06:32] LABS: CREATININE 1.97 mg/dL (0.70-1.30); POTASSIUM 3.9 mmol/L (3.5-5.1)
[2019-07-11 08:00] VITALS: BP 105/64
--- NOTE | 2019-07-11 09:00 | NUR ---
Insurance Account Manager in to talk to patient. Patient states lives at home with . There are no steps in the home. Physician: jorgito hdz Pharmacy: [facility] health services: none Patient's level of ADLs: INDEPENDENT Patient has working utilities: all working DME: none Follow-up physician's appointment after d/c: will be made by hospitalist nurse director upon discharge Does patient want to access PORTAL?: no Discharge plan discussed with patient, he states he lives at home with , he is independent in adls and ambulation, he states he will return home when medically stable and denies any home needs, case management will follow. LORRIANE BOSCH
--- NOTE | 2019-07-11 10:12 | NUR ---
OFFICE STAFF WAS NOTIFIED OF DR. GARCIA CONSULT. RESPONSE OF NOTIFICATION WAS INFORMATION REQUESTED GIVEN TO OFFICE NURSE AND SHE STATES SHE WILL PAGE THE PHYSICAN WITH INFO. ROGELIO TINAJERO
[2019-07-11 12:00] VITALS: BP 106/65
--- NOTE | 2019-07-11 12:15 | NUR ---
Medicated with ativan per prn order for complaints of anxiety and norco per prn order for complaints of rt flank pain.
--- NOTE | 2019-07-11 13:00 | NUR ---
States that medication was effective for pain and anxiety.
[2019-07-11 16:00] VITALS: BP 101/49
--- NOTE | 2019-07-11 19:42 | NUR ---
24 HR chart check completed.
[2019-07-11 20:00] VITALS: BP 100/58
--- NOTE | 2019-07-11 20:20 | NUR ---
norco given per order for right flank pain rated "6" per pt. . see mar.
--- NOTE | 2019-07-11 21:14 | NUR ---
ATIVAN GIVEN PER ORDER FOR ANXIETY. PER PT. NORCO HELPING WITH PAIN.
[2019-07-12] VITALS: BP 110/67
[2019-07-12 07:39] LABS: BASO % 0.6 % (0.0-1.0); EOS # 0.4 10*3/uL (0.0-0.4); EOS % 6.9 % (1.0-4.0); HEMATOCRIT 33.1 % (42.0-52.0); HEMOGLOBIN 10.2 g/dl (14.0-18.0); LYMPH % 31.1 % (27.0-41.0); MEAN CELL VOLUME 78.6 fl (80.0-94.0); MEAN CORPUSCULAR HGB 24.2 pg (27.0-31.0); MEAN CORPUSCULAR HGB CONC 30.8 g/dl (33.0-37.0); MEAN PLATELET VOLUME 11.5 fl (9.6-12.3); MONO # 0.7 10*3/uL (0.1-1.0); MONO % 10.6 % (3.0-9.0); NEUT # 3.2 10*3/uL (2.3-7.9); NEUT % 50.5 % (47.0-73.0); PLATELET COUNT AUTOMATED 291 10*3/uL (130-400); RED BLOOD COUNT 4.21 10*6/uL (4.50-5.90); RED CELL DISTRI WIDTH 15.1 % (0-14.5); WHITE BLOOD COUNT 6.3 10*3/uL (4.8-10.8)
[2019-07-12 07:49] LABS: CREATININE 1.66 mg/dL (0.70-1.30); POTASSIUM 3.8 mmol/L (3.5-5.1)
[2019-07-12 08:00] VITALS: BP 123/76
[2019-07-12 12:00] VITALS: BP 125/66
--- NOTE | 2019-07-12 15:27 | NUR ---
Linden given for c/o right flank pain rated 6/10. Zofran given for c/o nausea. Will monitor.
[2019-07-12 16:00] VITALS: BP 123/80
--- NOTE | 2019-07-12 18:20 | NUR ---
REQUESTED ATIVAN AT THIS TIME FOR C/O ANXIETY. GIVEN AND WILL CONT TO MONITOR. CALL LIGHT IN REACH.
--- NOTE | 2019-07-12 19:05 | NUR ---
ARRIVED ON SHIFT, INTRODUCED TO PATIENT, BED IN LOW POSITION, WHEEL LOCKS ENGAGED, CALL LIGHT WITHIN REACH, NO NEEDS VOICED AT THIS TIME WHITE BOARD UPDATED.
[2019-07-12 20:00] VITALS: BP 101/59
--- NOTE | 2019-07-12 20:12 | NUR ---
24 HR chart check completed.
[2019-07-13] VITALS: BP 116/69
[2019-07-13 08:00] VITALS: BP 122/69
[2019-07-13] MEDS ORDERED: ZYVOX600 MG PO (10:19)
--- NOTE | 2019-07-13 11:24 | NUR ---
Discharge instructions reviewed with patient/family. Patient receptive and verbalizes understanding. Follow-up care arranged. Written instructions given to patient/family. Patient was educated on new prescription and not to take Prozac and Remeron until 24hrs after last dose of Zyvox. He was also instructed to follow up with urologist. Patient ambulated from unit with all personal belongings accounted for. BRADY MEEKS
== END 2019-07-13 11:24 | disposition home or self-care (01) | DRG 689 ==
LOC: ED 13:51 → 5E 16:44 → EDHOLD 16:44 → 5E 17:03
PROVIDERS: Internal Medicine; Nurse Practitioner Family; ADMIT Internal Medicine
DX: N30.01 Acute cystitis with hematuria (principal); N17.0 Acute kidney failure with tubular necrosis; Z16.12 Extended spectrum beta lactamase (ESBL) resistance; E87.8 Other disorders of electrolyte and fluid balance, not elsewhere classified; B95.2 Enterococcus as the cause of diseases classified elsewhere; N18.3 Chronic kidney disease, stage 3 (moderate); D50.9 Iron deficiency anemia, unspecified; R73.9 Hyperglycemia, unspecified; K21.9 Gastro-esophageal reflux disease without esophagitis; F32.9 Major depressive disorder, single episode, unspecified; I12.9 Hypertensive chronic kidney disease with stage 1 through stage 4 chronic kidney disease, or unspecified chronic kidney disease; F41.9 Anxiety disorder, unspecified; E78.5 Hyperlipidemia, unspecified; E55.9 Vitamin D deficiency, unspecified; M1A.9XX0 Chronic gout, unspecified, without tophus (tophi); E53.8 Deficiency of other specified B group vitamins; J45.909 Unspecified asthma, uncomplicated; Z86.73 Personal history of transient ischemic attack (TIA), and cerebral infarction without residual deficits; Z88.0 Allergy status to penicillin; Z88.1 Allergy status to other antibiotic agents; Z88.8 Allergy status to other drugs, medicaments and biological substances; Z79.82 Long term (current) use of aspirin; Z79.899 Other long term (current) drug therapy; Z87.442 Personal history of urinary calculi; Z82.49 Family history of ischemic heart disease and other diseases of the circulatory system

== ENCOUNTER → 2019-07-23 | Outpatient (CLI) | payer MEDICARE ==
[~2019-07-23] MED LIST changes: +BUSPIRONE HCL10 MG PO; +REMERON15 M2 PO; +TOPAMAX50 MG PO; +ZYVOX600 MG PO
== END | disposition home or self-care (01) ==
LOC: RAD 11:06
DX: N20.0 Calculus of kidney (principal); N28.89 Other specified disorders of kidney and ureter

== ENCOUNTER 2019-10-02 12:04 | Emergency (ER) | payer MEDICARE ==
[~2019-10-02] VITALS: Ht 180.3 cm; Wt 147.4 kg
[2019-10-02 12:41] LABS: BILIRUBIN 1+ (NEGATIVE); BLOOD TRACE-INTACT (NEGATIVE); CLARITY SL CLOUDY (CLEAR); COLOR YELLOW (YELLOW); GLUCOSE NEGATIVE (NEGATIVE); KETONE NEGATIVE (NEGATIVE)
[2019-10-02 12:42] LABS: LEUKO ESTERASE 2+ (NEGATIVE); NITRITE NEGATIVE (NEGATIVE); UROBILINOGEN 0.2 E.U./dl (0.2-1.0)
[2019-10-02 12:52] LABS: BACTERIA 2+; WBC 51-100 wbc/hpf (0-5)
[2019-10-02 12:53] LABS: MUCOUS 1+
[2019-10-02 13:04] LABS: BASO % 0.6 % (0.0-1.0); EOS # 0.3 10*3/uL (0.0-0.4); EOS % 4.1 % (1.0-4.0); HEMATOCRIT 38.8 % (42.0-52.0); LYMPH # 2.3 10*3/uL (1.3-4.4); LYMPH % 34.6 % (27.0-41.0); MEAN CELL VOLUME 75.9 fl (80.0-94.0); MEAN CORPUSCULAR HGB 23.3 pg (27.0-31.0); MEAN CORPUSCULAR HGB CONC 30.7 g/dl (33.0-37.0); MEAN PLATELET VOLUME 10.3 fl (9.6-12.3); MONO # 0.8 10*3/uL (0.1-1.0); MONO % 11.4 % (3.0-9.0); NEUT # 3.3 10*3/uL (2.3-7.9); PLATELET COUNT AUTOMATED 314 10*3/uL (130-400); RED BLOOD COUNT 5.11 10*6/uL (4.50-5.90); RED CELL DISTRI WIDTH 16.7 % (0-14.5); WHITE BLOOD COUNT 6.8 10*3/uL (4.8-10.8)
[2019-10-02 13:18] LABS: ALBUMIN 3.3 gm/dl (3.1-4.5); CREATININE 1.93 mg/dL (0.70-1.30); POTASSIUM 3.9 mmol/L (3.5-5.1); TOTAL PROTEIN 6.9 gm/dL (6.4-8.2)
[2019-10-02] MEDS ORDERED: MACROBID100 M1 PO (14:16)
== END 2019-10-02 16:07 | disposition home or self-care (01) ==
LOC: ED 12:04
PROVIDERS: Physician Assistant
DX: N39.0 Urinary tract infection, site not specified (principal); Z88.0 Allergy status to penicillin; Z88.8 Allergy status to other drugs, medicaments and biological substances; Z79.82 Long term (current) use of aspirin; Z79.899 Other long term (current) drug therapy

== ENCOUNTER 2019-12-04 12:50 | Emergency (ER) | payer MEDICARE ==
[~2019-12-04] VITALS: Ht 180.3 cm; Wt 158.8 kg
[~2019-12-04 12:50] MED LIST changes: +MACROBID100 M1 PO
[2019-12-04 13:21] LABS: BASO % 0.6 % (0.0-1.0); EOS # 0.3 10*3/uL (0.0-0.4); EOS % 4.2 % (1.0-4.0); HEMATOCRIT 42.5 % (42.0-52.0); LYMPH # 2.1 10*3/uL (1.3-4.4); LYMPH % 30.2 % (27.0-41.0); MEAN CELL VOLUME 75.4 fl (80.0-94.0); MEAN CORPUSCULAR HGB 22.9 pg (27.0-31.0); MEAN CORPUSCULAR HGB CONC 30.4 g/dl (33.0-37.0); MEAN PLATELET VOLUME 11.2 fl (9.6-12.3); MONO # 0.5 10*3/uL (0.1-1.0); MONO % 7.6 % (3.0-9.0); NEUT % 57.1 % (47.0-73.0); PLATELET COUNT AUTOMATED 314 10*3/uL (130-400); RED BLOOD COUNT 5.64 10*6/uL (4.50-5.90); RED CELL DISTRI WIDTH 18.4 % (0-14.5)
[2019-12-04 13:36] LABS: ALBUMIN 3.4 gm/dl (3.1-4.5); CREATININE 2.11 mg/dL (0.70-1.30); TOTAL PROTEIN 7.5 gm/dL (6.4-8.2)
[2019-12-04 14:02] LABS: BILIRUBIN NEGATIVE (NEGATIVE); BLOOD NEGATIVE (NEGATIVE); CLARITY CLEAR (CLEAR); COLOR YELLOW (YELLOW); GLUCOSE NEGATIVE (NEGATIVE); KETONE NEGATIVE (NEGATIVE); NITRITE NEGATIVE (NEGATIVE); SPECIFIC GRAVITY 1.015 (1.005-1.030); UROBILINOGEN 0.2 E.U./dl (0.2-1.0)
[2019-12-04 14:03] LABS: LEUKO ESTERASE 1+ (NEGATIVE)
[2019-12-04 14:04] LABS: BACTERIA 3+; MUCOUS 1+; WBC 51-100 wbc/hpf (0-5)
[2019-12-04] MEDS ORDERED: ZYVOX600 MG PO (15:36)
== END 2019-12-04 15:57 | disposition home or self-care (01) ==
LOC: ED 12:50
PROVIDERS: Nurse Practitioner Family
DX: N39.0 Urinary tract infection, site not specified (principal); Z88.0 Allergy status to penicillin; Z88.6 Allergy status to analgesic agent; Z88.1 Allergy status to other antibiotic agents; Z79.899 Other long term (current) drug therapy; Z79.82 Long term (current) use of aspirin

== ENCOUNTER → 2019-12-17 | Outpatient (CLI) | payer MEDICARE | END | disposition home or self-care (01) | LOC: COVID19 10:22 | DX: Z11.59 Encounter for screening for other viral diseases (principal); I10 Essential (primary) hypertension; E78.5 Hyperlipidemia, unspecified; R53.83 Other fatigue ==

== ENCOUNTER → 2020-01-01 | Outpatient (CLI) | payer MEDICARE ==
[2020-01-01 13:36] LABS: ALBUMIN 3.5 gm/dl (3.1-4.5); BILIRUBIN, DIRECT 0.1 mg/dL (0.0-0.2); CREATININE 2.08 mg/dL (0.70-1.30); POTASSIUM 4.3 mmol/L (3.5-5.1); TOTAL PROTEIN 7.3 gm/dL (6.4-8.2); URIC ACID 4.9 mg/dL (3.5-7.2)
[2020-01-01 16:12] LABS: VITAMIN D, 25-HYDROXY 33.5 ng/mL (30-100)
== END | disposition home or self-care (01) ==
LOC: LAB 12:10
PROVIDERS: ATTEND Internal Medicine
DX: E55.9 Vitamin D deficiency, unspecified (principal); E78.5 Hyperlipidemia, unspecified; E74.39 Other disorders of intestinal carbohydrate absorption; E53.8 Deficiency of other specified B group vitamins; N20.0 Calculus of kidney; Z79.899 Other long term (current) drug therapy

== ENCOUNTER 2020-01-03 13:56 | Emergency (ER) | payer MEDICARE ==
[~2020-01-03] VITALS: Ht 175.2 cm; Wt 127.0 kg
[2020-01-03 14:27] LABS: BILIRUBIN NEGATIVE; BLOOD NEGATIVE (NEGATIVE); CLARITY CLOUDY (CLEAR); COLOR YELLOW (YELLOW); GLUCOSE NEGATIVE; KETONE NEGATIVE; LEUKO ESTERASE 1+ (NEGATIVE); NITRITE NEGATIVE (NEGATIVE)
[2020-01-03 14:28] LABS: BASO % 0.4 % (0.0-1.0); EOS # 0.3 10*3/uL (0.0-0.4); HEMATOCRIT 39.7 % (42.0-52.0); LYMPH # 2.8 10*3/uL (1.3-4.4); LYMPH % 37.1 % (27.0-41.0); MEAN CELL VOLUME 75.9 fl (80.0-94.0); MEAN CORPUSCULAR HGB 23.7 pg (27.0-31.0); MEAN CORPUSCULAR HGB CONC 31.2 g/dl (33.0-37.0); MEAN PLATELET VOLUME 10.7 fl (9.6-12.3); MONO % 12.9 % (3.0-9.0); NEUT # 3.4 10*3/uL (2.3-7.9); NEUT % 45.1 % (47.0-73.0); PLATELET COUNT AUTOMATED 375 10*3/uL (130-400); RED BLOOD COUNT 5.23 10*6/uL (4.50-5.90); WHITE BLOOD COUNT 7.5 10*3/uL (4.8-10.8)
[2020-01-03 14:37] LABS: BACTERIA 2+; EPITHELIAL CELLS 0-2; MUCOUS TRACE; RBC 0-2 rbc/hpf (0-2)
[2020-01-03 14:45] LABS: ALBUMIN 3.4 gm/dl (3.1-4.5); CREATININE 2.03 mg/dL (0.70-1.30); POTASSIUM 3.9 mmol/L (3.5-5.1); TOTAL PROTEIN 7.1 gm/dL (6.4-8.2)
[2020-01-03] MEDS ORDERED: PYRIDIUM200 M1 PO (15:00)
== END 2020-01-03 15:15 | disposition home or self-care (01) ==
LOC: ED 13:56
PROVIDERS: Nurse Practitioner Family
DX: R30.0 Dysuria (principal); R30.9 Painful micturition, unspecified; R35.0 Frequency of micturition; Z88.0 Allergy status to penicillin; Z88.1 Allergy status to other antibiotic agents; Z88.6 Allergy status to analgesic agent; Z79.899 Other long term (current) drug therapy; Z79.82 Long term (current) use of aspirin

== ENCOUNTER → 2020-01-22 | Outpatient (CLI) | payer MEDICARE | END | disposition home or self-care (01) | LOC: CT 12:26 | PROVIDERS: ATTEND Urology | DX: N43.3 Hydrocele, unspecified (principal); N20.0 Calculus of kidney ==

== ENCOUNTER 2020-02-06 09:12 | Inpatient (IN) | payer MEDICARE ==
[~2020-02-06] VITALS: Ht 180.3 cm; Wt 161.0 kg
[2020-02-06 09:17] VITALS: BP 120/70
[2020-02-06 09:48] LABS: BILIRUBIN 1+ (Negative); BLOOD 1+ (Negative); CLARITY Clear (Clear); COLOR Dark Yellow (Yellow); GLUCOSE Negative (Negative); KETONE Negative (Negative); LEUKO ESTERASE 1+ (Negative); NITRITE Negative (Negative)
[2020-02-06 10:04] LABS: BACTERIA 1+; MUCOUS 3+; RBC 41-50 rbc/hpf (0-2); WBC 16-20 wbc/hpf (0-5)
[2020-02-06 10:21] LABS: BASO % 0.4 % (0.0-1.0); EOS # 0.2 10*3/uL (0.0-0.4); EOS % 2.1 % (1.0-4.0); HEMATOCRIT 40.8 % (42.0-52.0); LYMPH # 1.9 10*3/uL (1.3-4.4); LYMPH % 24.2 % (27.0-41.0); MEAN CELL VOLUME 74.6 fl (80.0-94.0); MEAN CORPUSCULAR HGB 23.4 pg (27.0-31.0); MEAN CORPUSCULAR HGB CONC 31.4 g/dl (33.0-37.0); MEAN PLATELET VOLUME 10.8 fl (9.6-12.3); MONO # 0.9 10*3/uL (0.1-1.0); MONO % 11.7 % (3.0-9.0); NEUT # 4.8 10*3/uL (2.3-7.9); NEUT % 61.2 % (47.0-73.0); PLATELET COUNT AUTOMATED 279 10*3/uL (130-400); RED BLOOD COUNT 5.47 10*6/uL (4.50-5.90); RED CELL DISTRI WIDTH 16.3 % (0-14.5); WHITE BLOOD COUNT 7.8 10*3/uL (4.8-10.8)
--- NOTE | 2020-02-06 10:30 | NUR ---
PATIENT HAS BEEN TAKEN TO ULTRASOUND VIA STRETCHER.
[2020-02-06 10:39] LABS: ALBUMIN 3.3 gm/dl (3.1-4.5); CREATININE 2.3 mg/dL (0.70-1.30); TOTAL PROTEIN 7.1 gm/dL (6.4-8.2)
--- NOTE | 2020-02-06 10:45 | NUR ---
PATIENT HAS RETURNED FROM US.
--- NOTE | 2020-02-06 11:00 | NUR ---
PATIENT STATES THAT HE IS PAIN FREE AT THIS TIME. THOUGH STILL C/O INTERMITTENT NAUSEA. CALL LIGHT IN REACH. NS INFUSING. NO OTHER COMPLAINTS AT THIS TIME. WILL CONTINUE TO MONITOR.
--- NOTE | 2020-02-06 13:10 | NUR ---
PT C/O NAUSEA. PROVIDER NOTIFIED.
--- NOTE | 2020-02-06 13:30 | NUR ---
PT STATES THAT HE FEELS MUCH BETTER AFTER RECEIVING THE MEDICATION.
--- NOTE | 2020-02-06 13:30 | NUR ---
A 54, admitted to , under the services of LINDA Escalera DO with a diagnosis of UTI. Chief complaint is UTI, N/V. Patient arrived via wheel chair from ER. Monitor applied. Initial assessment completed. Vital signs taken and recorded. LINDA ESCALERA DO notified of admission to the unit. Orders received. See assessment for past medical history, medications and allergies. Patient and/or family oriented to unit. [address] visitation policy reviewed. Clothing/patient valuable form completed. DEMARIO CARTER
[2020-02-06 14:48] VITALS: BP 134/77
--- NOTE | 2020-02-06 15:09 | NUR ---
COMPLAINTS OF SMALL UNWITNESSED EMSIS. DRY HEAVING NOTED. CALLED . OK TO GIVE ONE TIME DOSE OF PHENERGAN. SEE MAR.
[2020-02-06 16:00] VITALS: BP 107/62
--- NOTE | 2020-02-06 16:33 | NUR ---
PT MEDICATED WITH PRN ATIVAN FOR C/O ANXIETY. WILL MONITOR FOR EFFECTIVENESS.
--- NOTE | 2020-02-06 17:15 | NUR ---
PT REPORTS RELIEF OF ANXIETY, PRN ATIVAN EFFECTIVE.
[2020-02-06 20:00] VITALS: BP 98/57
--- NOTE | 2020-02-06 20:20 | NUR ---
RESTING IN BED WITH HOB ELEVATED. IV FLUIDS INFUSING INTO RIGHT HAND WITHOUT DIFFICULTY; SITE ASYMPTOMATIC. LUNGS CLEAR WITH NO COUGH NOTED. PT. DENIES PAIN OR DISCOMFORT AT THIS TIME. NO NAUSEA OR VOMITING. TOOK PATIENT A URINAL & STRAINER SO THAT WE COULD STRAIN HIS URINE. CALL SANDRA SOL.
[2020-02-07] VITALS: BP 108/58
--- NOTE | 2020-02-07 02:00 | NUR ---
RESTING IN BED; IV FLUIDS INFUSING ORDERED. CALL LIGHT WITHIN REACH.
--- NOTE | 2020-02-07 05:43 | NUR ---
MEDICATED WITH ATIVAN FOR C/O ANXIETY.
[2020-02-07 06:00] LABS: BASO % 0.3 % (0.0-1.0); EOS # 0.3 10*3/uL (0.0-0.4); LYMPH # 1.9 10*3/uL (1.3-4.4); LYMPH % 28.5 % (27.0-41.0); MEAN CELL VOLUME 74.4 fl (80.0-94.0); MEAN CORPUSCULAR HGB 23.2 pg (27.0-31.0); MEAN CORPUSCULAR HGB CONC 31.2 g/dl (33.0-37.0); MEAN PLATELET VOLUME 11.7 fl (9.6-12.3); MONO # 0.9 10*3/uL (0.1-1.0); MONO % 13.1 % (3.0-9.0); NEUT # 3.6 10*3/uL (2.3-7.9); NEUT % 53.8 % (47.0-73.0); PLATELET COUNT AUTOMATED 242 10*3/uL (130-400); RED BLOOD COUNT 4.57 10*6/uL (4.50-5.90); WHITE BLOOD COUNT 6.8 10*3/uL (4.8-10.8)
[2020-02-07 06:01] LABS: ALBUMIN 2.9 gm/dl (3.1-4.5); CREATININE 2.09 mg/dL (0.70-1.30); POTASSIUM 3.6 mmol/L (3.5-5.1); TOTAL PROTEIN 6.1 gm/dL (6.4-8.2)
[2020-02-07 06:16] LABS: INTERNATIONAL NORM RATIO 1.1 (2.0-3.5)
[2020-02-07 08:00] VITALS: BP 95/65
--- NOTE | 2020-02-07 08:48 | NUR ---
PT REQUESTING PRN ZOFRAN FOR NAUSEA, NO EMESIS OF YET.
--- NOTE | 2020-02-07 09:36 | NUR ---
Production Or Plant Engineer in to talk to patient. Patient states that he lives at home with his Amee and Son. There are No steps in the home. Physician: Patricia Hand [facility]: [facility] [place] Home health services: No Home Health Services at this time. Pt. states he does not need Home Health at present. Patient's level of ADLs: Independent, will assist if there are any needs. Patient has working utilities: Yes DME: Pt. uses at [employer] [facility] [employer] [facility] Follow-up physician's appointment after d/c: Per Hospitalist Office Does patient want to access PORTAL?: No Discharge plan . Plan at this time is for Pt. to return home with his Amee and his Son. Pt. Voiced no Home Care Needs at this time. Pt. states he does not want SNF but is receptive to referral to [facility] if SNF is required. Pt. will Provide Transportation at Discharge. IGNACIO KURTZ LPN Production Or Plant Engineer
--- NOTE | 2020-02-07 09:48 | NUR ---
PT REPORTS ZOFRAN EFFECTIVE.
[2020-02-07] MEDS ORDERED: NORCO 5-325 TA1 EACH PO (10:10)
[2020-02-07] MEDS ORDERED: ZOFRAN4 MG PO (10:10)
--- NOTE | 2020-02-07 11:10 | NUR ---
Discharge instructions reviewed with patient/family. Patient receptive and verbalizes understanding. Follow-up care arranged. Written instructions given to patient/family. MAGNUS LOBO
--- NOTE | 2020-02-07 11:10 | NUR ---
Hep Lock discontinued. Site asymptomatic. Pressure applied. Sterile dressing applied. MAGNUS LOBO
== END 2020-02-07 11:18 | disposition home or self-care (01) | DRG 689 ==
LOC: ED 09:12 → EDHOLD 12:12 → 4E 12:12
PROVIDERS: Physician Assistant; Student in an Organized Health Care Education/Training Program; ADMIT Family Medicine; ATTEND Family Medicine
DX: N30.01 Acute cystitis with hematuria (principal); N17.0 Acute kidney failure with tubular necrosis; E78.00 Pure hypercholesterolemia, unspecified; F41.9 Anxiety disorder, unspecified; F32.9 Major depressive disorder, single episode, unspecified; J45.909 Unspecified asthma, uncomplicated; K21.9 Gastro-esophageal reflux disease without esophagitis; M10.9 Gout, unspecified; E78.5 Hyperlipidemia, unspecified; D50.9 Iron deficiency anemia, unspecified; M54.9 Dorsalgia, unspecified; R35.0 Frequency of micturition; R39.15 Urgency of urination; N23 Unspecified renal colic; N40.1 Benign prostatic hyperplasia with lower urinary tract symptoms; E53.8 Deficiency of other specified B group vitamins; N18.9 Chronic kidney disease, unspecified; I12.9 Hypertensive chronic kidney disease with stage 1 through stage 4 chronic kidney disease, or unspecified chronic kidney disease; N20.0 Calculus of kidney; Z98.890 Other specified postprocedural states; Z87.81 Personal history of (healed) traumatic fracture; Z88.1 Allergy status to other antibiotic agents; Z88.0 Allergy status to penicillin; Z88.8 Allergy status to other drugs, medicaments and biological substances; Z82.49 Family history of ischemic heart disease and other diseases of the circulatory system; Z86.73 Personal history of transient ischemic attack (TIA), and cerebral infarction without residual deficits; Z80.3 Family history of malignant neoplasm of breast; Z80.42 Family history of malignant neoplasm of prostate; Z79.899 Other long term (current) drug therapy

== ENCOUNTER → 2020-02-16 | Outpatient (CLI) | payer MEDICARE ==
[2020-02-16 09:15] LABS: BASO % 0.5 % (0.0-1.0); EOS # 0.2 10*3/uL (0.0-0.4); EOS % 4.1 % (1.0-4.0); HEMATOCRIT 37.1 % (42.0-52.0); LYMPH # 1.9 10*3/uL (1.3-4.4); LYMPH % 34.3 % (27.0-41.0); MEAN CELL VOLUME 74.5 fl (80.0-94.0); MEAN CORPUSCULAR HGB 23.1 pg (27.0-31.0); MONO # 0.5 10*3/uL (0.1-1.0); MONO % 8.4 % (3.0-9.0); NEUT # 2.9 10*3/uL (2.3-7.9); NEUT % 52.3 % (47.0-73.0); PLATELET COUNT AUTOMATED 296 10*3/uL (130-400); RED BLOOD COUNT 4.98 10*6/uL (4.50-5.90); RED CELL DISTRI WIDTH 16.7 % (0-14.5); WHITE BLOOD COUNT 5.6 10*3/uL (4.8-10.8)
[2020-02-16 09:23] LABS: BILIRUBIN Negative (Negative); BLOOD 1+ (Negative); CLARITY Clear (Clear); COLOR Yellow (Yellow); GLUCOSE Negative (Negative); KETONE Negative (Negative); LEUKO ESTERASE Negative (Negative); NITRITE Negative (Negative); SPECIFIC GRAVITY 1.015 (1.001-1.030)
[2020-02-16 09:31] LABS: ALBUMIN 3.1 gm/dl (3.1-4.5); CREATININE 1.89 mg/dL (0.70-1.30); TOTAL PROTEIN 6.6 gm/dL (6.4-8.2)
[2020-02-16 10:24] LABS: RBC 41-50 rbc/hpf (0-2)
[2020-02-16 10:26] LABS: BACTERIA 1+
== END | disposition home or self-care (01) ==
LOC: LAB 08:38 → CT 09:00
PROVIDERS: ATTEND Urology
DX: N28.1 Cyst of kidney, acquired (principal); N20.0 Calculus of kidney; N39.0 Urinary tract infection, site not specified

== ENCOUNTER 2020-03-01 07:23 | Emergency (ER) | payer MEDICARE ==
[~2020-03-01] VITALS: Ht 172.7 cm; Wt 181.4 kg
[2020-03-01 07:45] LABS: ARTERIAL BLOOD GAS PH 7.436 (7.35-7.45)
[2020-03-01 08:08] LABS: HEMATOCRIT 43.1 % (42.0-52.0); MEAN CELL VOLUME 73.5 fl (80.0-94.0); MEAN CORPUSCULAR HGB CONC 31.3 g/dl (33.0-37.0); MEAN PLATELET VOLUME 11.4 fl (9.6-12.3); NUCLEATED RED BLOOD CELL 0.1 10*3/uL (0.0-0.0); NUCLEATED RED BLOOD CELL 0.4 % (0.0-0.0); PLATELET COUNT AUTOMATED 162 10*3/uL (130-400); RED BLOOD COUNT 5.86 10*6/uL (4.50-5.90); RED CELL DISTRI WIDTH 16.6 % (0-14.5); WHITE BLOOD COUNT 17.3 10*3/uL (4.8-10.8)
[2020-03-01 08:17] LABS: ACT PARTIAL THROMBO TIME 30.8 SECONDS (20.0-32.1); INTERNATIONAL NORM RATIO 1.2 (2.0-3.5)
[2020-03-01 08:22] LABS: ALBUMIN 2.6 gm/dl (3.1-4.5); CREATININE 3.85 mg/dL (0.70-1.30); POTASSIUM 3.7 mmol/L (3.5-5.1); TOTAL PROTEIN 7.3 gm/dL (6.4-8.2)
[2020-03-01 08:25] LABS: MICROCYTOSIS SLIGHT; OVALOCYTES FEW; PLATELET SUFFICIENCY NORMAL (NORMAL); POLYCHROMASIA SLIGHT; TOTAL CELLS COUNTED 100 #CELLS; TROPONIN I 0.466 ng/ml (<0.045); VACUOLATION OF NEUTROPHILS SLIGHT
== END 2020-03-01 09:52 | disposition short-term general hospital (02) ==
LOC: ED 07:23
PROVIDERS: Emergency Medicine
DX: A41.9 Sepsis, unspecified organism (principal); R65.20 Severe sepsis without septic shock; I12.9 Hypertensive chronic kidney disease with stage 1 through stage 4 chronic kidney disease, or unspecified chronic kidney disease; N18.30 Chronic kidney disease, stage 3 unspecified; K21.9 Gastro-esophageal reflux disease without esophagitis; M10.9 Gout, unspecified; E78.5 Hyperlipidemia, unspecified; Z88.0 Allergy status to penicillin; Z88.6 Allergy status to analgesic agent; Z88.1 Allergy status to other antibiotic agents; Z79.899 Other long term (current) drug therapy; Z79.82 Long term (current) use of aspirin; Z86.73 Personal history of transient ischemic attack (TIA), and cerebral infarction without residual deficits; Z98.890 Other specified postprocedural states

== ENCOUNTER 2020-03-31 13:22 | Emergency (ER) | payer MEDICARE ==
[~2020-03-31] VITALS: Wt 137.9 kg
[2020-03-31 14:17] LABS: BASO % 0.2 % (0.0-1.0); EOS # 0.1 10*3/uL (0.0-0.4); EOS % 1.9 % (1.0-4.0); HEMATOCRIT 38.8 % (42.0-52.0); LYMPH % 34.1 % (27.0-41.0); MEAN CORPUSCULAR HGB 25.2 pg (27.0-31.0); MEAN CORPUSCULAR HGB CONC 30.7 g/dl (33.0-37.0); MEAN PLATELET VOLUME 11.7 fl (9.6-12.3); MONO # 0.7 10*3/uL (0.1-1.0); MONO % 11.2 % (3.0-9.0); NEUT # 3.1 10*3/uL (2.3-7.9); NEUT % 52.3 % (47.0-73.0); PLATELET COUNT AUTOMATED 261 10*3/uL (130-400); RED BLOOD COUNT 4.73 10*6/uL (4.50-5.90); RED CELL DISTRI WIDTH 23.9 % (0-14.5); WHITE BLOOD COUNT 5.9 10*3/uL (4.8-10.8)
[2020-03-31 14:31] LABS: ACT PARTIAL THROMBO TIME 25.6 SECONDS (20.0-32.1); INTERNATIONAL NORM RATIO 1.1 (2.0-3.5)
[2020-03-31 14:32] LABS: ALBUMIN 2.9 gm/dl (3.1-4.5); CREATININE 1.49 mg/dL (0.70-1.30); POTASSIUM 3.8 mmol/L (3.5-5.1); TOTAL PROTEIN 7.2 gm/dL (6.4-8.2)
[2020-03-31 16:15] LABS: BILIRUBIN Negative (Negative); BLOOD Negative (Negative); CLARITY Clear (Clear); COLOR Dark Yellow (Yellow); GLUCOSE Negative (Negative); KETONE Trace (Negative); LEUKO ESTERASE 1+ (Negative); NITRITE Negative (Negative); PH 7.5 (4.5-8.0)
[2020-03-31 16:32] LABS: WBC 0-2 wbc/hpf (0-5)
== END 2020-03-31 16:53 | disposition home or self-care (01) ==
LOC: ED 13:22
PROVIDERS: Emergency Medicine
DX: R51.9 Headache, unspecified (principal); I12.9 Hypertensive chronic kidney disease with stage 1 through stage 4 chronic kidney disease, or unspecified chronic kidney disease; N18.30 Chronic kidney disease, stage 3 unspecified; F41.9 Anxiety disorder, unspecified; K21.9 Gastro-esophageal reflux disease without esophagitis; M10.9 Gout, unspecified; Z88.0 Allergy status to penicillin; Z88.8 Allergy status to other drugs, medicaments and biological substances; Z79.899 Other long term (current) drug therapy; Z79.82 Long term (current) use of aspirin

== ENCOUNTER → 2020-04-13 | Outpatient (CLI) | payer MEDICARE | END | disposition home or self-care (01) | LOC: COVID19 14:35 | PROVIDERS: ATTEND Internal Medicine | DX: U07.1 COVID-19 (principal) ==

== ENCOUNTER → 2020-07-14 | Outpatient (CLI) | payer MEDICARE | END | disposition home or self-care (01) | LOC: COVID19 12:26 | PROVIDERS: ATTEND Nurse Practitioner Family | DX: Z20.822 Contact with and (suspected) exposure to COVID-19 (principal) ==

== ENCOUNTER 2020-10-12 07:39 | Emergency (ER) | payer MEDICARE ==
[~2020-10-12] VITALS: Ht 180.3 cm; Wt 163.3 kg
[2020-10-12 08:18] LABS: BASO % 0.4 % (0.0-1.0); EOS # 0.3 10*3/uL (0.0-0.4); EOS % 3.1 % (1.0-4.0); HEMATOCRIT 38.3 % (42.0-52.0); LYMPH # 2.7 10*3/uL (1.3-4.4); LYMPH % 26.2 % (27.0-41.0); MEAN CELL VOLUME 78.2 fl (80.0-94.0); MEAN CORPUSCULAR HGB 24.3 pg (27.0-31.0); MEAN CORPUSCULAR HGB CONC 31.1 g/dl (33.0-37.0); MEAN PLATELET VOLUME 10.4 fl (9.6-12.3); MONO % 9.8 % (3.0-9.0); NEUT # 6.1 10*3/uL (2.3-7.9); NEUT % 59.9 % (47.0-73.0); PLATELET COUNT AUTOMATED 304 10*3/uL (130-400); RED CELL DISTRI WIDTH 17.4 % (0-14.5); WHITE BLOOD COUNT 10.2 10*3/uL (4.8-10.8)
[2020-10-12 08:40] LABS: ALBUMIN 2.6 gm/dl (3.1-4.5); CREATININE 1.8 mg/dL (0.70-1.30); POTASSIUM 3.8 mmol/L (3.5-5.1); TOTAL PROTEIN 6.6 gm/dL (6.4-8.2)
[2020-10-12] MEDS ORDERED: HYDROCODONE-AC1 EAC1 PO (09:38)
[2020-10-12] MEDS ORDERED: DOXYCYCLINE100 M3 PO (09:38)
== END 2020-10-12 09:44 | disposition home or self-care (01) ==
LOC: ED 07:39
PROVIDERS: Emergency Medicine
DX: L03.116 Cellulitis of left lower limb (principal); L03.115 Cellulitis of right lower limb; Z88.0 Allergy status to penicillin; Z88.8 Allergy status to other drugs, medicaments and biological substances; Z79.899 Other long term (current) drug therapy; Z79.82 Long term (current) use of aspirin; Z98.890 Other specified postprocedural states

== ENCOUNTER 2020-11-05 16:28 | Emergency (ER) | payer MEDICARE ==
[~2020-11-05] VITALS: Ht 180.3 cm; Wt 172.4 kg
[~2020-11-05 16:28] MED LIST changes: +DOXYCYCLINE100 M3 PO; +HYDROCODONE-AC1 EAC1 PO
[2020-11-05 17:31] LABS: BASO % 0.4 % (0.0-1.0); EOS # 0.3 10*3/uL (0.0-0.4); EOS % 3.7 % (1.0-4.0); HEMATOCRIT 41.3 % (42.0-52.0); LYMPH # 2.9 10*3/uL (1.3-4.4); LYMPH % 34.8 % (27.0-41.0); MEAN CORPUSCULAR HGB 24.1 pg (27.0-31.0); MEAN CORPUSCULAR HGB CONC 30.5 g/dl (33.0-37.0); MEAN PLATELET VOLUME 10.3 fl (9.6-12.3); MONO % 11.5 % (3.0-9.0); NEUT # 4.1 10*3/uL (2.3-7.9); NEUT % 48.9 % (47.0-73.0); PLATELET COUNT AUTOMATED 344 10*3/uL (130-400); RED BLOOD COUNT 5.23 10*6/uL (4.50-5.90); RED CELL DISTRI WIDTH 17.2 % (0-14.5); WHITE BLOOD COUNT 8.4 10*3/uL (4.8-10.8)
[2020-11-05 17:45] LABS: ALBUMIN 3.1 gm/dl (3.1-4.5); CREATININE 1.9 mg/dL (0.70-1.30); POTASSIUM 4.4 mmol/L (3.5-5.1); TOTAL PROTEIN 6.7 gm/dL (6.4-8.2)
[2020-11-05 18:33] LABS: BILIRUBIN Negative (Negative); BLOOD Negative (Negative); CLARITY Clear (Clear); COLOR Yellow (Yellow); GLUCOSE Negative (Negative); KETONE Negative (Negative); LEUKO ESTERASE Negative (Negative); NITRITE Negative (Negative); UROBILINOGEN 0.2 E.U./dl (0.0-1.0)
[2020-11-05 18:41] LABS: PH 8.5 (4.5-8.0)
[2020-11-05 18:58] LABS: BACTERIA 1+; RBC 0-2 rbc/hpf (0-2)
[2020-11-05] MEDS ORDERED: ZOFRAN4 MG PO (19:16)
== END 2020-11-05 19:33 | disposition home or self-care (01) ==
LOC: ED 16:28
PROVIDERS: Family Medicine
DX: N20.0 Calculus of kidney (principal); Z87.442 Personal history of urinary calculi; Z88.0 Allergy status to penicillin; Z88.6 Allergy status to analgesic agent; Z88.1 Allergy status to other antibiotic agents; Z79.899 Other long term (current) drug therapy; Z79.2 Long term (current) use of antibiotics; Z79.82 Long term (current) use of aspirin; Z90.89 Acquired absence of other organs

== ENCOUNTER 2020-12-10 16:46 | Emergency (ER) | payer MEDICARE ==
[~2020-12-10] VITALS: Ht 180.3 cm; Wt 170.1 kg
[2020-12-10] MEDS ORDERED: HYDROCODONE-AC1 EAC1 PO (19:21)
== END 2020-12-10 20:00 | disposition home or self-care (01) ==
LOC: ED 16:46
DX: S83.92XA Sprain of unspecified site of left knee, initial encounter (principal); Z88.0 Allergy status to penicillin; Z88.6 Allergy status to analgesic agent; Z88.1 Allergy status to other antibiotic agents; Z79.899 Other long term (current) drug therapy; Z79.2 Long term (current) use of antibiotics; Z79.82 Long term (current) use of aspirin; Z87.442 Personal history of urinary calculi; Z90.89 Acquired absence of other organs; X50.1XXA Overexertion from prolonged static or awkward postures, initial encounter; Y93.89 Activity, other specified; Y92.89 Other specified places as the place of occurrence of the external cause; Y99.8 Other external cause status

== ENCOUNTER → 2021-02-07 | Outpatient (CLI) | payer MEDICARE | END | disposition home or self-care (01) | LOC: COVID19 15:55 | PROVIDERS: ATTEND Internal Medicine | DX: Z11.52 Encounter for screening for COVID-19 (principal) ==

== ENCOUNTER → 2021-03-28 | Outpatient (CLI) | payer MEDICARE | END | disposition home or self-care (01) | LOC: COVID19 16:42 | PROVIDERS: ATTEND Internal Medicine | DX: Z11.52 Encounter for screening for COVID-19 (principal) ==

== ENCOUNTER 2021-04-08 13:45 | Emergency (ER) | payer MEDICARE ==
[~2021-04-08] VITALS: Ht 180.3 cm; Wt 180.5 kg
[2021-04-08] MEDS ORDERED: BUDESONIDE-FO10.2 G1 INH (14:24)
[2021-04-08] MEDS ORDERED: PROVENTIL HFA6.7 GM INH (14:25)
[2021-04-08] MEDS ORDERED: PREDNISONE20 M1 PO (14:25)
[2021-04-08] MEDS ORDERED: DOXYCYCLINE HY100 M3 PO (14:25)
[2021-04-08] MEDS ORDERED: PRISTIQ50 MG PO (14:26)
[2021-04-08] MEDS ORDERED: CHLORTHALIDONE25 MG PO (14:26)
[2021-04-08 18:54] LABS: HEMATOCRIT 43.1 % (42.0-52.0); MEAN CELL VOLUME 77.2 fl (80.0-94.0); MEAN CORPUSCULAR HGB 25.1 pg (27.0-31.0); MEAN CORPUSCULAR HGB CONC 32.5 g/dl (33.0-37.0); MEAN PLATELET VOLUME 10.7 fl (9.6-12.3); PLATELET COUNT AUTOMATED 303 10*3/uL (130-400); RED BLOOD COUNT 5.58 10*6/uL (4.50-5.90); RED CELL DISTRI WIDTH 20.5 % (0-14.5); WHITE BLOOD COUNT 14.8 10*3/uL (4.8-10.8)
[2021-04-08 19:04] LABS: ACT PARTIAL THROMBO TIME 23.6 SECONDS (20.0-32.1)
[2021-04-08 19:09] LABS: ALKALINE PHOSPHATASE 113 U/L (45-117); BUN 24 mg/dl (7-24); CHLORIDE 109 mmol/L (98-107); CREATININE 1.46 mg/dL (0.70-1.30); POTASSIUM 3.6 mmol/L (3.5-5.1); SGOT/AST 9 IU/L (3-35); SGPT/ALT 35 U/L (12-78); SODIUM 140 mmol/L (136-145); TOTAL PROTEIN 6.9 gm/dL (6.4-8.2)
[2021-04-08 19:14] LABS: BASOPHILS 1 % (0-1); TOTAL CELLS COUNTED 100 #CELLS
[2021-04-08 19:15] LABS: PLATELET SUFFICIENCY NORMAL (NORMAL)
== END 2021-04-08 22:00 | disposition home or self-care (01) ==
LOC: ED 13:45
PROVIDERS: Emergency Medicine
DX: J44.1 Chronic obstructive pulmonary disease with (acute) exacerbation (principal); E88.09 Other disorders of plasma-protein metabolism, not elsewhere classified; D72.829 Elevated white blood cell count, unspecified; I12.9 Hypertensive chronic kidney disease with stage 1 through stage 4 chronic kidney disease, or unspecified chronic kidney disease; N18.31 Chronic kidney disease, stage 3a; K21.9 Gastro-esophageal reflux disease without esophagitis; M10.9 Gout, unspecified; E78.5 Hyperlipidemia, unspecified; R07.9 Chest pain, unspecified; Z88.0 Allergy status to penicillin; Z88.6 Allergy status to analgesic agent; Z88.1 Allergy status to other antibiotic agents; Z79.899 Other long term (current) drug therapy; Z79.82 Long term (current) use of aspirin

== ENCOUNTER → 2021-04-12 | Outpatient (CLI) | payer MEDICARE ==
[~2021-04-12] MED LIST changes: +BUDESONIDE-FO10.2 G1 INH; +CHLORTHALIDONE25 MG PO; +DOXYCYCLINE HY100 M3 PO; +PRISTIQ50 MG PO; +PROVENTIL HFA6.7 GM INH
== END | disposition home or self-care (01) ==
LOC: LAB 10:48
PROVIDERS: ATTEND Family Medicine
DX: R07.89 Other chest pain (principal)